=== PATIENT | male | born 1940 | race Caucasian/White ===

== ENCOUNTER 2019-01-31 15:18 | Emergency (ER) | payer MEDICARE, OTHER ==
[2019-01-31 15:26] VITALS: BP 124/69
[2019-01-31] MEDS ORDERED: TETANUS/DIPHTHERIA/PERTUSSIS 0.5 ML SYRINGE IM ONE (15:36)
[2019-01-31] MEDS ORDERED: BUFFERED LIDOCAINE 10 ML SYRINGE SUBQ STA (15:36)
--- NOTE | 2019-01-31 15:38 | ED Physician Documentation ---
History of Present Illness - Stated complaint Stated Complaint: L ARM LAC - Chief complaint Chief Complaint: General - History obtained from History obtained from: Patient - History of Present Illness Timing: Today (78-year-old gentleman with unknown tetanus status was rototilling and tripped and fell down on his left side. He has mild posterior left rib pain and a laceration on the left forearm. No loss of consciousness or head injury.) Review of Systems Constitutional: reports: Reviewed and negative Throat: reports: Reviewed and negative Cardiac: reports: Reviewed and negative Respiratory: reports: Reviewed and negative PD PAST MEDICAL HISTORY - Past Medical History Cardiovascular: None Respiratory: None Neuro: None Endocrine/Autoimmune: None GI: None : None HEENT: None Psych: None Musculoskeletal: None Derm: None Other Past Medical History: denies - Past Surgical History Past Surgical History: No - Allergies Allergies/Adverse Reactions: Allergies Allergy/AdvReac Type Severity Reaction Status Date / Time No Known Drug Allergies Allergy Verified 01/31/19 15:26 - Social History Does the pt smoke?: No Smoking Status: Never smoker Does the pt drink ETOH?: No Does the pt have substance abuse?: No - Immunizations Immunizations are current?: Yes PD ED PE NORMAL - Vitals Vital signs reviewed: Yes - General General: Alert and oriented X 3, No acute distress - Neck Neck: Supple, no meningeal sign, No bony TTP - Respiratory Respiratory: No respiratory distress, Clear bilaterally, Other (No rib tenderness) - Abdomen Abdomen: Non tender - Back Back: No CVA TTP, Other (Mild TTP low T spine and Low posterior L ribs) - Extremities Extremities: Other (On the medial left forearm there is a long shallow but gaping laceration, much of it especially proximally is really more of an abrasion, but distally there are some spots that could use closure.) - Neuro Neuro: Alert and oriented X 3, Normal speech - Psych Psych: Normal mood, Normal affect Results - Vitals Vitals: Vital Signs - 24 hr 01/31/19 15:19 Temperature 37.2 C Heart Rate 98 Respiratory 14 Rate Blood Pressure 124/69 O2 Saturation 99 Oxygen O2 Source Room air - Rads (name of study) T spine XR and Lribs and chest Radiology: EMP read contemporaneously (NAD) Procedures - Laceration (location) Left forearm Length in cm: 6 Wound type: Other (The actual laceration part was may be 6 cm, there was underlying an extensive abrasion proximal to this. The sides of it needed to be sharply debrided and scrubbed and thoroughly irrigated to clean them.) Anesthesia: Lidocaine 1%, With bicarb Wound Preparation: Irrigated copiously NS, Debrided extensively Skin layer closure: Nylon, Interrupted, Size #-0 - enter number (4-0) Other: Patient tolerated well, No complications, Neurovascular intact, Tetanus booster given Complexity: Intermediate Departure - Departure Disposition: 01 Home, Self Care Clinical Impression: Laceration of left forearm Qualifiers: Encounter type: initial encounter Qualified Code(s): S51.812A - Laceration without foreign body of left forearm, initial encounter Condition: Good Record reviewed to determine appropriate education?: Yes Instructions: ED Laceration All Comments: Come back for any signs of infection which would include: Redness, swelling, drainage, increased pain, or fevers. You can wash it soap and water. Keep it covered and moist with bacitracin ointment which is available over the counter; avoid neosporin. Follow-up with your physician in about 10 days for suture removal. If you are interested in volunteering at the hospital, you can call [phone] extension [phone] or see the website at: [email or web address]
--- NOTE | 2019-01-31 17:42 | XRAY Report ---
Reason: fall, rib/back pain Procedure Date: 01/31/2019 Accession Number: [id number] / [id number] Procedure: XR - Thoracic Spine 2 View CPT Code: FULL RESULT: EXAM: THORACIC SPINE RADIOGRAPHY EXAM DATE: 01/31/2019 05:13 PM. CLINICAL HISTORY: Fall, rib/back pain. COMPARISON: None. TECHNIQUE: 3 views. FINDINGS: Alignment: 8 degree dextroscoliosis centered at T8. Bones: Old slight wedging inferior half thoracic spine. Trabecular and cortical patterns are intact. Disks: Multilevel moderate to marked degenerative changes throughout the thoracolumbar spine. Soft Tissues: Pacer. IMPRESSION: No acute bony abnormality. RADIA
--- NOTE | 2019-01-31 17:44 | XRAY Report ---
Reason: fall, rib/back pain Procedure Date: 01/31/2019 Accession Number: [id number] / [id number] Procedure: XR - Ribs w/PA Chest LT CPT Code: FULL RESULT: EXAM: LEFT RIB RADIOGRAPHY EXAM DATE: 01/31/2019 05:13 PM. CLINICAL HISTORY: Fall, rib/back pain. COMPARISON: None. TECHNIQUE: 1 view of the chest and 2 views of the ribs. FINDINGS: Bones: Old right eighth rib fracture. Trabecular and cortical patterns are intact. Lungs: No focal opacities. No pneumothorax. No pleural effusions. Mediastinum: Heart and mediastinal contours are unremarkable. Dual lead left subclavian pacer. Other: Bilateral shoulder loose bodies. IMPRESSION: 1. Pacer. 2. No acute bony abnormality. RADIA
[2019-01-31] MEDS ORDERED: NAPROXEN 250 MG TABLET PO STA (17:46)
[2019-01-31] MEDS ORDERED: BACITRACIN OINT TOP STA (17:49)
== END 2019-01-31 17:57 | disposition home or self-care (01) ==
LOC: ED 15:18
DX: S51.812A Laceration without foreign body of left forearm, initial encounter (principal); W01.198A Fall on same level from slipping, tripping and stumbling with subsequent striking against other object, initial encounter; Y93.H2 Activity, gardening and landscaping
CPT/HCPCS: 12032; 71101; 72070; 90471; 90715; 99282; A9270

== ENCOUNTER 2019-02-09 11:44 | Emergency (ER) | payer MEDICARE, OTHER ==
--- NOTE | 2019-02-09 12:15 | ED Physician Documentation ---
History of Present Illness - Stated complaint Stated Complaint: LEFT SIDE INJURY - Chief complaint Chief Complaint: General - History obtained from History obtained from: Patient - Additonal information Additional information: The patient is an 78-year-old male who presents with ecchymosis of his left flank region extending down his left thigh. 9 days ago he fell while rototilling, impacting a timber and concrete pad with his left back. He was seen here at that time and underwent x-rays of his thoracic spine and chest with rib detail. No bony abnormalities were identified. Lacerations on his left forearm were repaired. The pain in his left flank region has improved since initial onset after the injury. However this morning he noticed a large area of ecchymosis involving that area. He denies lightheadedness, fever, or increasing pain. He is concerned about the possibility of splenic injury. Review of Systems Constitutional: denies: Fever Ears: denies: Tinnitus/ringing Nose: denies: Congestion Throat: denies: Sore throat Cardiac: denies: Chest pain / pressure Respiratory: denies: Dyspnea, Cough GI: denies: Abdominal Pain, Nausea, Vomiting : denies: Dysuria Skin: reports: Laceration (s) (Laceration of the left forearm healing.) Musculoskeletal: denies: Neck pain, Back pain Neurologic: denies: Focal weakness, Numbness, Headache PD PAST MEDICAL HISTORY - Past Medical History Cardiovascular: None Respiratory: None Neuro: None Endocrine/Autoimmune: None GI: None : None HEENT: None Psych: None Musculoskeletal: None Derm: None - Past Surgical History Past Surgical History: No - Allergies Allergies/Adverse Reactions: Allergies Allergy/AdvReac Type Severity Reaction Status Date / Time No Known Drug Allergies Allergy Verified 01/31/19 15:26 - Social History Does the pt smoke?: No Smoking Status: Never smoker Does the pt drink ETOH?: No Does the pt have substance abuse?: No - Immunizations Immunizations are current?: Yes PD ED PE NORMAL - Vitals Vital signs reviewed: Yes (Mild diastolic hypertension.) - General General: Alert and oriented X 3, Well developed/nourished - HEENT HEENT: Atraumatic, Pharynx benign - Neck Neck: No bony TTP, No JVD - Cardiac Cardiac: RRR - Respiratory Respiratory: No respiratory distress, Clear bilaterally - Abdomen Abdomen: Soft, Non tender, Other (Rotund abdomen.) - Back Back: No CVA TTP, No spinal TTP - Derm Derm: No rash, Other (There is a large area of ecchymosis from the left flank region extending down across the pelvis into the left upper thigh. There is no associated break in the integument, and no focal tenderness to palpation. The laceration on the extensor aspect of the left forearm is intact with sutures and appears to be healing well, with no evidence of cellulitis. There is also a nonsutured deep abrasion on the left upper arm, which he appears to be healing well.) - Extremities Extremities: No calf tenderness / cord - Neuro Neuro: Alert and oriented X 3, No motor deficit, No sensory deficit Results - Vitals Vitals: Vital Signs - 24 hr 02/09/19 02/09/19 02/09/19 12:00 13:59 15:28 Temperature 36.8 C 36.5 C 36.1 C L Heart Rate 66 60 61 Respiratory 16 12 18 Rate Blood Pressure 122/95 H 132/73 H 154/87 H O2 Saturation 96 99 99 Oxygen O2 Source Room air - EKG (time done) 11:37 Rate: Rate (enter#) (55) Rhythm: NSR, LAE [place]: Normal QRS: Poor R wave progression Ischemia: Q waves (in precordial leads V1, V2, consistent with old anterior OK.) Computer interpretation: Agree with computer - Labs Labs: Laboratory Tests 02/09/19 02/09/19 12:39 12:39 WBC 5.3 RBC 4.71 Hgb 15.0 Hct 44.5 MCV 94.4 H MCH 31.9 H MCHC 33.8 RDW 12.9 Plt Count 273 MPV 8.1 Neut # (Auto) 3.1 Lymph # (Auto) 1.3 L [place] # (Auto) 0.6 Eos # (Auto) 0.1 Baso # (Auto) 0.1 Absolute Nucleated RBC 0.00 Nucleated RBC % 0.1 Sodium 139 Potassium 4.3 Chloride 103 Carbon Dioxide 29 Anion Gap 7.0 BUN 26 H Creatinine 1.0 Estimated GFR (MDRD) 72 L Glucose 105 H Calcium 9.2 Total Bilirubin 1.1 H AST 26 ALT 21 Alkaline Phosphatase 59 Total Protein 6.4 L Albumin 3.7 Globulin 2.7 Albumin/Globulin Ratio 1.4 Lipase 28 - Rads (name of study) CT abd/pelvis Radiology: Prelim report reviewed, EMP read contemporaneously, See rad report (1) Nondisplaced left lateral eighth through 11th rib fractures. 2) No solid or hollow abdominal viscera trauma. 3) Mild left flank subcutaneous hemorrhagic stranding. No drainable fluid collection seen. 4) Small fat-containing bilateral inguinal hernias. 5) Diverticulosis. 6) Incidental 3 and 4 mm right middle lobe not jewels, incompletely imaged on this exam. Consider full evaluation with chest CT on elective basis.) Procedures - Suture/staple Removal (location) Upper extremity left Suture/staple removal: # sutures (7), No complications PD MEDICAL DECISION MAKING - ED course Complexity details: reviewed old records, reviewed results, re-evaluated patient, considered differential, d/w patient ED course: The patient's presentation is significant for fractures of left ribs 8 through 11, seen on CT scan of the abdomen and pelvis. This is from an injury sustained 9 days ago when he fell backwards onto a timber whle rototilling. The CT scan did not reveal any evidence of intraperitoneal injury. CBC reveals a normal hemoglobin and hematocrit. In addition the patient presented for removal of sutures from a wound on his left forearm that been repaired when seen here 9 days ago. The wound appears to be healing well with no evidence of infection. The sutures were removed without difficulty. I discussed with the patient the results of his CT scan, expected course of injury, symptomatic treatment and outpatient follow-up, as well as potentially worrisome signs or symptoms that should prompt reevaluation in the emergency department. Departure - Departure Disposition: 01 Home, Self Care Clinical Impression: Ecchymosis, Visit for suture removal Multiple fractures of ribs of left side Qualifiers: Encounter type: subsequent encounter Fracture type: closed Fracture healing: with routine healing Qualified Code(s): S22.42XD - Multiple fractures of ribs, left side, subsequent encounter for fracture with routine healing Condition: Stable Instructions: ED Fx Rib Follow-Up: Glenn Frazier MD [Primary Care Provider] - Comments: Use Tylenol or ibuprofen if needed for discomfort. Let pain be your guide to activity level. Follow-up with your primary physician within 2 weeks. Call to schedule an appointment. Return to the emergency department if increasing pain or difficulty breathing, any sign of infection, or otherwise worsening symptoms. Discharge Date/Time: 02/09/19 15:39
[2019-02-09] MEDS ORDERED: IOVERSOL 320 100 ML VIAL IVP ONE ×2 (12:29→17:52)
[2019-02-09 12:44] LABS: BASOPHILS # (AUTO) 0.1 10^3/uL (0.0-0.1); EOSINOPHILS # (AUTO) 0.1 10^3/uL (0.0-0.7); EOSINOPHILS % (AUTO) 2.8 %; LYMPHOCYTES # (AUTO) 1.3 10^3/uL (1.5-3.5); LYMPHOCYTES % (AUTO) 25.3 %; MEAN CORPUSCULAR HEMOGLOBIN 31.9 pg (27.0-31.0); MEAN CORPUSCULAR HGB CONC 33.8 g/dL (32.0-36.0); MEAN CORPUSCULAR VOLUME 94.4 fL (80.0-94.0); MEAN PLATELET VOLUME 8.1 fL (7.4-11.4); MONOCYTES # (AUTO) 0.6 10^3/uL (0.0-1.0); MONOCYTES % (AUTO) 11.6 %; NEUTROPHILS # (AUTO) 3.1 10^3/uL (1.5-6.6); NEUTROPHILS % (AUTO) 59.3 %; PLT - PLATELET COUNT 273 10^3/uL (130-450); RED BLOOD COUNT 4.71 10^6/uL (4.70-6.10); RED CELL DISTRIBUTION WIDTH 12.9 % (12.0-15.0); WHITE BLOOD COUNT 5.3 x10^3/uL (4.8-10.8)
[2019-02-09 12:59] LABS: ALBUMIN 3.7 g/dL (3.2-5.5); ALBUMIN/GLOBULIN RATIO 1.4 (1.0-2.2); BILIRUBIN,TOTAL 1.1 mg/dL (0.2-1.0); CALCIUM 9.2 mg/dL (8.5-10.3); TOTAL PROTEIN 6.4 g/dL (6.7-8.2)
--- NOTE | 2019-02-09 14:51 | CT Report ---
Reason: Large area of ecchymosis left abd/pelvis Procedure Date: 02/09/2019 Accession Number: [id number] / [id number] Procedure: CT - Abdomen/Pelvis W CPT Code: FULL RESULT: EXAM: CT ABDOMEN AND PELVIS EXAM DATE: 02/09/2019 01:41 PM. CLINICAL HISTORY: Large area of ecchymosis left abdomen/pelvis. COMPARISONS: None. TECHNIQUE: Routine helical CT imaging was performed through the abdomen and pelvis. IV contrast: 100 mL Optiray 320. Enteric contrast: No. Reconstructions: Coronal and sagittal. In accordance with CT protocol optimization, one or more of the following dose reduction techniques were utilized for this exam: automated exposure control, adjustment of mA and/or KV based on patient size, or use of iterative reconstructive technique. FINDINGS: Lung Bases: There are 3 and 4 mm right middle lobe nodules. No pleural effusions. Liver: Subcentimeter hypodensities in the left and right hepatic lobes, which are too small to characterize; however, statistically most likely represent cysts or hemangiomas. Liver is otherwise unremarkable. Gallbladder/Bile Ducts: Unremarkable. Spleen: Normal. Pancreas: Normal. Adrenal Glands: Normal. Kidneys: Normal. No masses or hydronephrosis. Peritoneal Cavity/Bowel: There is diverticulosis without diverticulitis. No bowel obstruction. No free air or fluid collections. The appendix is well visualized and normal. Pelvic Organs: There is metallic artifact from bilateral hip replacements obscuring the urinary bladder and prostate gland. No obvious fluid collections or masses seen. There are small fat-containing bilateral inguinal hernias. Vasculature: No aneurysms or other significant abnormality. Bones: Bilateral hip replacements demonstrate satisfactory alignment. There are nondisplaced fractures involving the left lateral eighth, ninth, 10th and 11th ribs. Diffuse lumbar spine degenerative disk disease. No lower thoracic or lumbar spine fracture seen. Other: Mild subcutaneous hemorrhagic stranding in the left flank. No drainable fluid collection seen. IMPRESSION: 1. Nondisplaced left lateral 8th through 11th rib fractures. 2. No solid or hollow abdominal visceral trauma. 3. Mild left flank subcutaneous hemorrhagic stranding. No drainable fluid collection seen. 4. Small fat-containing bilateral inguinal hernias. 5. Diverticulosis. 6. Incidental 3 and 4 mm right middle lobe nodules, incompletely imaged on this exam. Consider full evaluation with chest CT on an elective basis. RADIA
[2019-02-09 15:29] VITALS: BP 154/87
== END 2019-02-09 15:39 | disposition home or self-care (01) ==
LOC: ED 11:44
DX: S22.42XA Multiple fractures of ribs, left side, initial encounter for closed fracture (principal); W18.39XA Other fall on same level, initial encounter; Y93.H2 Activity, gardening and landscaping; S51.812D Laceration without foreign body of left forearm, subsequent encounter
CPT/HCPCS: 36415; 74177; 80053; 83690; 85025; 99283; Q9967

== ENCOUNTER 2020-04-11 16:25 | Outpatient (CLI) | payer MEDICARE, OTHER ==
[2020-04-11 19:07] LABS: BASOPHILS % (AUTO) 0.6 %; EOSINOPHILS # (AUTO) 0.2 10^3/uL (0.0-0.7); EOSINOPHILS % (AUTO) 2.6 %; HGB - HEMOGLOBIN 16.2 g/dL (14.0-18.0); LYMPHOCYTES # (AUTO) 1.5 10^3/uL (1.5-3.5); LYMPHOCYTES % (AUTO) 23.5 %; MEAN CORPUSCULAR HEMOGLOBIN 31.6 pg (27.0-31.0); MEAN CORPUSCULAR HGB CONC 33.1 g/dL (32.0-36.0); MEAN CORPUSCULAR VOLUME 95.5 fL (80.0-94.0); MEAN PLATELET VOLUME 10.7 fL (7.4-11.4); MONOCYTES # (AUTO) 0.7 10^3/uL (0.0-1.0); MONOCYTES % (AUTO) 11.9 %; NEUTROPHILS # (AUTO) 3.8 10^3/uL (1.5-6.6); NEUTROPHILS % (AUTO) 60.8 %; PLT - PLATELET COUNT 222 10^3/uL (130-450); RED BLOOD COUNT 5.13 10^6/uL (4.70-6.10); RED CELL DISTRIBUTION WIDTH 12.5 % (12.0-15.0); WHITE BLOOD COUNT 6.2 x10^3/uL (4.8-10.8)
[2020-04-11 19:33] LABS: ALBUMIN 4.6 g/dL (3.2-5.5); ALBUMIN/GLOBULIN RATIO 1.9 (1.0-2.2); BILIRUBIN,TOTAL 0.9 mg/dL (0.2-1.0); CALCIUM 9.3 mg/dL (8.5-10.3); CREATININE 1.4 mg/dL (0.6-1.2)
[2020-04-11 19:42] LABS: THYROID STIMULATING HORMONE 0.45 uIU/mL (0.34-5.60)
[2020-04-11 19:43] LABS: FREE T3 2.63 pg/mL (2.5-3.9)
[2020-04-11 19:44] LABS: FREE T4 (FREE THYROXINE) 1.3 ng/dL (0.58-1.64)
== END 2020-04-11 23:59 | disposition home or self-care (01) ==
LOC: LAB.WCP 16:25
PROVIDERS: ATTEND Family Medicine
DX: E03.9 Hypothyroidism, unspecified (principal); M79.7 Fibromyalgia
CPT/HCPCS: 36415; 80053; 84439; 84443; 84481; 85025

== ENCOUNTER 2020-07-11 20:21 | Outpatient (CLI) | payer MEDICARE, OTHER | END 2020-07-11 20:22 | disposition home or self-care (01) | LOC: COV 20:21 | PROVIDERS: ATTEND Family Medicine | DX: Z20.828 Contact with and (suspected) exposure to other viral communicable diseases (principal) ==

== ENCOUNTER 2020-08-16 15:00 | Outpatient (CLI) | payer MEDICARE, OTHER ==
[2020-08-16 19:10] LABS: THYROID STIMULATING HORMONE 3.16 uIU/mL (0.34-5.60)
[2020-08-16 19:12] LABS: FREE T3 2.87 pg/mL (2.5-3.9); FREE T4 (FREE THYROXINE) 0.84 ng/dL (0.58-1.64)
== END 2020-08-16 23:59 | disposition home or self-care (01) ==
LOC: LAB.WCP 15:00
PROVIDERS: ATTEND Family Medicine
DX: E03.9 Hypothyroidism, unspecified (principal)
CPT/HCPCS: 36415; 84439; 84443; 84481

== ENCOUNTER 2020-12-03 07:00 | Outpatient (CLI) | payer MEDICARE, OTHER ==
[2020-12-03 18:00] LABS: BILIRUBIN,URINE NEGATIVE (NEGATIVE); GLUCOSE, URINE (UA) NEGATIVE (NEGATIVE); KETONES,URINE (UA) NEGATIVE (NEGATIVE); LEUKOCYTE ESTERASE, URINE NEGATIVE (NEGATIVE); NITRITE,URINE NEGATIVE (NEGATIVE); OCCULT BLOOD,URINE NEGATIVE (NEGATIVE); PROTEIN,URINE NEGATIVE (NEGATIVE); UROBILINOGEN,URINE 0.2 (NORMAL) E.U./dL (NORMAL)
[2020-12-03 18:10] LABS: BACTERIA,URINE None Seen /HPF (None Seen); CLARITY,URINE CLEAR (CLEAR); MUCUS,URINE Few Strands; RBC,URINE 0-5 /HPF (0-5); SQUAMOUS EPITHELIAL CELL,UR RARE Squamous (<= Few); WBC,URINE 0-3 /HPF (0-3)
== END 2020-12-03 23:59 | disposition home or self-care (01) ==
LOC: LAB.WCP 07:00
PROVIDERS: ATTEND Family Medicine
DX: N40.0 Benign prostatic hyperplasia without lower urinary tract symptoms (principal)
CPT/HCPCS: 36415; 81001; 84153; 87086

== ENCOUNTER 2021-04-29 19:27 | Outpatient (CLI) | payer MEDICARE, OTHER ==
--- NOTE | 2021-04-30 08:20 | Ultrasound Report ---
PROCEDURE: Duplex Ext Veins Bilateral INDICATIONS: Leg swelling, concern for DVT TECHNIQUE: Real-time imaging, as well as color and pulse Doppler interrogation, were performed of the deep veins of both legs from the inguinal ligament to the popliteal fossa. COMPARISON: None. FINDINGS: The deep veins are normally compressible, and free of intraluminal thrombus. Color and pu lse Doppler demonstrate normal phasic intravascular flow. There is normal augmentation response to d istal compression maneuver. IMPRESSION: No sonographic evidence of DVT in the bilateral lower extremities. Reviewed by: Santos Gutiérrez MD on 04/30/2021 8:19 AM PDT Approved by: Santos Gutiérrez MD on 04/30/2021 8:19 AM PDT Station ID: [id number]
== END 2021-04-29 19:28 | disposition home or self-care (01) ==
LOC: DI 19:27
PROVIDERS: ATTEND Family Medicine
DX: R60.9 Edema, unspecified (principal)
CPT/HCPCS: 93970

== ENCOUNTER 2021-05-05 08:00 | Outpatient (CLI) | payer MEDICARE, OTHER ==
[2021-05-05 17:48] LABS: HCT - HEMATOCRIT 47.4 % (42.0-52.0); HGB - HEMOGLOBIN 15.6 g/dL (14.0-18.0); MEAN CORPUSCULAR HEMOGLOBIN 31.7 pg (27.0-31.0); MEAN CORPUSCULAR HGB CONC 32.9 g/dL (32.0-36.0); MEAN CORPUSCULAR VOLUME 96.3 fL (80.0-94.0); MEAN PLATELET VOLUME 10.8 fL (7.4-11.4); RED BLOOD COUNT 4.92 10^6/uL (4.70-6.10); RED CELL DISTRIBUTION WIDTH 13.4 % (12.0-15.0); WHITE BLOOD COUNT 5.6 x10^3/uL (4.8-10.8)
[2021-05-05 18:22] LABS: CALCIUM 9.3 mg/dL (8.5-10.3); CREATININE 1.2 mg/dL (0.6-1.2); POTASSIUM 4.4 mmol/L (3.5-5.0)
== END 2021-05-05 23:59 | disposition home or self-care (01) ==
LOC: LAB.WCP 08:00
PROVIDERS: ATTEND Family Medicine
DX: N18.32 Chronic kidney disease, stage 3b (principal); R63.5 Abnormal weight gain; R60.9 Edema, unspecified; G47.33 Obstructive sleep apnea (adult) (pediatric)
CPT/HCPCS: 36415; 80048; 83880; 85027

== ENCOUNTER 2021-05-05 13:24 | Outpatient (CLI) | payer MEDICARE, OTHER ==
--- NOTE | 2021-05-05 14:08 | XRAY Report ---
PROCEDURE: Chest 2 View X-Ray INDICATIONS: CHRONIC KIDNEY Disease, wt Gain, peripheral EDEMA TECHNIQUE: 2 view(s) of the chest. COMPARISON: CXR 01/31/2019. FINDINGS: Surgical changes and devices: Left pacemaker with right atrial and right ventricular leads. Lungs and pleura: No pleural effusions or pneumothorax. Minimal streaky opacity at the medial aspect of the right lower lobe. Mediastinum: Mediastinal contours are normal. Heart size is normal. Bones and chest wall: No suspicious bony abnormalities. Soft tissues appear unremarkable. IMPRESSION: Minimal streaky opacity at the right lung base. This could be due to atelectasis, scarring, or pulmon nazanin vasculature engorgement. Reviewed by: Robin Phillips MD on 05/05/2021 2:06 PM PDT Approved by: Robin Phillips MD on 05/05/2021 2:06 PM PDT Station ID: [id number]
== END 2021-05-05 13:25 | disposition home or self-care (01) ==
LOC: DI 13:24
PROVIDERS: ATTEND Family Medicine
DX: R91.8 Other nonspecific abnormal finding of lung field (principal); N18.32 Chronic kidney disease, stage 3b; R63.5 Abnormal weight gain; R60.9 Edema, unspecified; G47.33 Obstructive sleep apnea (adult) (pediatric)

== ENCOUNTER 2021-07-08 08:00 | Outpatient (CLI) | payer MEDICARE, OTHER ==
[2021-07-08 17:51] LABS: BASOPHILS % (AUTO) 0.5 %; EOSINOPHILS # (AUTO) 0.1 10^3/uL (0.0-0.7); EOSINOPHILS % (AUTO) 1.5 %; HCT - HEMATOCRIT 48.6 % (42.0-52.0); HGB - HEMOGLOBIN 16.5 g/dL (14.0-18.0); LYMPHOCYTES # (AUTO) 1.7 10^3/uL (1.5-3.5); LYMPHOCYTES % (AUTO) 25.5 %; MEAN CORPUSCULAR HEMOGLOBIN 32.2 pg (27.0-31.0); MEAN CORPUSCULAR VOLUME 94.9 fL (80.0-94.0); MEAN PLATELET VOLUME 10.6 fL (7.4-11.4); MONOCYTES # (AUTO) 0.7 10^3/uL (0.0-1.0); MONOCYTES % (AUTO) 10.4 %; NEUTROPHILS % (AUTO) 61.3 %; PLT - PLATELET COUNT 226 10^3/uL (130-450); RED BLOOD COUNT 5.12 10^6/uL (4.70-6.10); WHITE BLOOD COUNT 6.5 x10^3/uL (4.8-10.8)
[2021-07-08 18:05] LABS: ALBUMIN 4.3 g/dL (3.2-5.5); ALBUMIN/GLOBULIN RATIO 1.7 (1.0-2.2); ALKALINE PHOSPHATASE 58 IU/L (42-121); ALT ALANINE AMINOTRANSFERASE 31 IU/L (10-60); AST ASPARTATE AMINOTRANSFERASE 29 IU/L (10-42); BUN - BLOOD UREA NITROGEN 30 mg/dL (6-20); CALCIUM 9.2 mg/dL (8.5-10.3); CARBON DIOXIDE - CO2 26 mmol/L (21-32); CHLORIDE 104 mmol/L (101-111); CHOL/HDL RATIO 3.5 (<5.0); CHOLESTEROL 166 mg/dL; CREATININE 1.3 mg/dL (0.6-1.2); GFR - MDRD 53 (>89); GLUCOSE 98 mg/dL (70-100); HDL CHOLESTEROL 48 mg/dL; LDL CHOLESTEROL,CALCULATED 89 mg/dL; LDL/HDL RATIO 1.9 (<3.6); POTASSIUM 4.3 mmol/L (3.5-5.0); SODIUM 140 mmol/L (135-145); TOTAL PROTEIN 6.9 g/dL (6.7-8.2); TRIGLYCERIDES 147 mg/dL; VLDL CHOLESTEROL 29 mg/dL
[2021-07-08 18:16] LABS: THYROID STIMULATING HORMONE 2.1 uIU/mL (0.34-5.60)
[2021-07-08 18:18] LABS: FREE T3 2.42 pg/mL (2.5-3.9); FREE T4 (FREE THYROXINE) 0.86 ng/dL (0.58-1.64)
== END 2021-07-08 23:59 | disposition home or self-care (01) ==
LOC: LAB.WCP 08:00
PROVIDERS: ATTEND Family Medicine
DX: N18.32 Chronic kidney disease, stage 3b (principal); R60.0 Localized edema; R60.9 Edema, unspecified; G47.33 Obstructive sleep apnea (adult) (pediatric); E78.5 Hyperlipidemia, unspecified; N40.0 Benign prostatic hyperplasia without lower urinary tract symptoms; I44.2 Atrioventricular block, complete; E03.9 Hypothyroidism, unspecified; M79.7 Fibromyalgia
CPT/HCPCS: 36415; 80053; 80061; 83721; 84153; 84439; 84443; 84481; 85025

== ENCOUNTER 2021-11-06 09:20 | Outpatient (CLI) | payer MEDICARE, OTHER ==
--- NOTE | 2021-11-06 09:43 | CARDIAC PROCEDURE NOTE ---
Stress Test Report Service Date: 11/06/21 Service Time: 09:30 Ordering Provider: Justice Barraza MD Indication for Test: Assess for inducible ischemia as a contributor to exertional dyspnea. 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 He was found to have complete heart block and underwent dual-chamber pacemaker placement, with significant improvement in his functional level. The generator reached end of life and was replaced in 2018, also in [place]. He relocated to [facility] about 3 years ago and has been followed for his pacemaker periodically by Dr. Rl Worthington. He also has mixed obstructive/central sleep apnea for which he has been on auto BiPAP for several years. He has not found a new sleep provider since relocating 3 years ago, but feels that this treatment is stable and was documented as being optimized prior to his relocation. -He is referred for a treadmill stress echocardiogram today in the setting of symptoms that include mild leg swelling and shortness of breath with gradual in onset over the past 1-2 years with some acceleration in severity over the past 6 months. The symptoms have forced him to discontinue using his rowing machine at home and now limits his 2/10 mile walk up to his mailbox. He denies associated chest pressure, discomfort or pain, as well as positional dyspnea or weight gain. He was trialed on furosemide, which he says has reduced his edema somewhat and resulted in frequent urination, though not had a notable effect on his exertional dyspnea. More recently he was also trialed on albuterol, but this also has not been helpful. Cardiac Risk Factors: Neftali reports some heart disease in 2 paternal uncles but is unaware of other affected close family members. He denies history of hypertension (rather has chronically low BPs), hyperlipidemia, diabetes or tobacco smoking ever. Type of Stress Test: ETT with Echocardiography Procedure: -Exercise Treadmill Test- After signing informed consent, the patient underwent resting echo imaging and then performed treadmill exercise using a Modified Aj protocol. The patient exercised for 9 minutes 32 seconds and achieved a peak heart rate of 128 (93 percent predicted maximum heart rate for age), and an estimated workload of 5.5 METS. The test was terminated due to fatigue/shortness of breath. Resting heart rate: 67 Peak heart rate: 128 Normal response to exercise. Resting BP: 124/95 Peak BP: 176/93 Borderline resting BP with physiologic response to exercise. Rhythm during exercise: Sinus rhythm with continuous ventricular pacing, with isolated PVC's, with rare PVC couplets and a single PVC triplet (near peak exercise). Symptoms: Dyspnea first noted 2 minutes into stage 1, but did not become limiting until late stage 3/early stage 4; no description of any chest discomfort. EKG at rest showed primarily A-V paced rhythm with occasional sinus beats. EKG at peak stress was uninterpretable due to continuous ventricular pacing. In Recovery heart rate rapidly/normally returned to baseline with slower decline in BP (150/77 at 6 minutes). Echo imaging performed at rest and with stress will be reported separately. Milton Muñoz MD, was present throughout this treadmill/pharmacologic stress study and supervised it in its entirety. Summary: 1) Although dyspnea was evident in stage 1, patient was able to continue to stage 4 with coaching and assistance with balance/stability; overall, exercise tolerance was well above average as evidenced by JAYSHREE of -51%. 2) Abnormal resting EKG. 3) Adequate level of exercise was achieved on this treadmill stress test. 4) Borderline resting BP with physiologic increase with exercise. 5) Due to continuous ventricular pacing, specific analysis of ST segment response not possible. 6) Echo image interpretation reveals normal left ventricular size and systolic function, with appropriate hyperdynamic augmentation of all segments with exercise, indicating no evidence of prior infarct or inducible ischemia. See separate report for more details. CONCLUSIONS: 1) No evidence of high clinical risk, based on exercise time, vital signs and echo responses. 2) Patient described some positional lightheadedness and balance issues, for which furosemide and pregabalin could be implicated and may warrant a trial of discontinuation of these agents individually.
== END 2021-11-06 09:21 | disposition home or self-care (01) ==
LOC: DI 09:20
PROVIDERS: ATTEND Family Medicine
DX: R06.09 Other forms of dyspnea (principal); J45.909 Unspecified asthma, uncomplicated; Z82.49 Family history of ischemic heart disease and other diseases of the circulatory system
CPT/HCPCS: 93016; 93017; 93018; 93350

== ENCOUNTER 2022-12-28 09:44 | Outpatient (CLI) | payer MEDICARE, OTHER ==
[2022-12-28 09:59] LABS: BASOPHILS % (AUTO) 0.6 %; EOSINOPHILS # (AUTO) 0.1 10^3/uL (0.0-0.7); EOSINOPHILS % (AUTO) 1.5 %; HCT - HEMATOCRIT 50.5 % (42.0-52.0); HGB - HEMOGLOBIN 17.1 g/dL (14.0-18.0); LYMPHOCYTES # (AUTO) 1.7 10^3/uL (1.5-3.5); LYMPHOCYTES % (AUTO) 26.2 %; MEAN CORPUSCULAR HEMOGLOBIN 32.1 pg (27.0-31.0); MEAN CORPUSCULAR HGB CONC 33.9 g/dL (32.0-36.0); MEAN CORPUSCULAR VOLUME 94.7 fL (80.0-94.0); MEAN PLATELET VOLUME 10.1 fL (7.4-11.4); MONOCYTES # (AUTO) 0.8 10^3/uL (0.0-1.0); NEUTROPHILS # (AUTO) 3.8 10^3/uL (1.5-6.6); NEUTROPHILS % (AUTO) 58.8 %; PLT - PLATELET COUNT 240 10^3/uL (130-450); RED BLOOD COUNT 5.33 10^6/uL (4.70-6.10); RED CELL DISTRIBUTION WIDTH 12.6 % (12.0-15.0); WHITE BLOOD COUNT 6.5 x10^3/uL (4.8-10.8)
[2022-12-28 10:34] LABS: ALBUMIN 4.1 g/dL (3.2-5.5); ALBUMIN/GLOBULIN RATIO 1.3 (1.0-2.2); ALKALINE PHOSPHATASE 60 IU/L (42-121); ALT ALANINE AMINOTRANSFERASE 27 IU/L (10-60); AST ASPARTATE AMINOTRANSFERASE 28 IU/L (10-42); BUN - BLOOD UREA NITROGEN 19 mg/dL (6-20); CALCIUM 9.1 mg/dL (8.5-10.3); CARBON DIOXIDE - CO2 28 mmol/L (21-32); CHLORIDE 107 mmol/L (101-111); CHOL/HDL RATIO 3.4 (<5.0); CHOLESTEROL 166 mg/dL; CREATININE 1.2 mg/dL (0.6-1.2); GFR - MDRD 58 (>89); GLUCOSE 116 mg/dL (70-100); HDL CHOLESTEROL 49 mg/dL; LDL CHOLESTEROL,CALCULATED 97 mg/dL; POTASSIUM 3.9 mmol/L (3.5-5.0); SODIUM 139 mmol/L (135-145); TOTAL PROTEIN 7.2 g/dL (6.7-8.2); TRIGLYCERIDES 102 mg/dL; VLDL CHOLESTEROL 20 mg/dL
[2022-12-28 10:43] LABS: THYROID STIMULATING HORMONE 13.41 uIU/mL (0.34-5.60)
[2022-12-28 11:35] LABS: FREE T4 (FREE THYROXINE) 0.93 ng/dL (0.58-1.64)
== END 2022-12-28 09:45 | disposition home or self-care (01) ==
LOC: LAB 09:44
PROVIDERS: ATTEND Family Medicine
DX: N18.32 Chronic kidney disease, stage 3b (principal); Z95.0 Presence of cardiac pacemaker; E03.9 Hypothyroidism, unspecified
CPT/HCPCS: 36415; 80053; 80061; 83721; 84439; 84443; 85025

== ENCOUNTER 2023-02-24 15:56 | Outpatient (CLI) | payer MEDICARE, OTHER ==
--- NOTE | 2023-02-24 17:15 | Sleep Patient Instructions ---
Sleep Center Visit Summary - Patient Visit Information Reason for Visit: Initial consult to establish care for PAP therapy - Patient Instructions Additional Instructions: You were here for follow up of BIPAP therapy. You will be continued on BiPAP therapy. We are going to try to obtain a copy of your sleep study. If not, we will order a sleep study. We will be in touch to coordinate with you. You may contact us sooner for any questions or concerns. - Clinic Information Contact: [facility] [address] [place] [id number] [email or web address] T: [phone]
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
[2023-02-24 17:34] VITALS: BP 130/90
== END 2023-02-24 15:57 ==
LOC: SC 15:56
PROVIDERS: ATTEND Nurse Practitioner Family
DX: G47.33 Obstructive sleep apnea (adult) (pediatric) (principal); E66.9 Obesity, unspecified; Z68.30 Body mass index [BMI] 30.0-30.9, adult
CPT/HCPCS: 99204; G0463; 99212

== ENCOUNTER 2023-11-18 10:24 | Outpatient (CLI) | payer MEDICARE, OTHER ==
[2023-11-18 11:03] LABS: CREATININE 1.3 mg/dL (0.6-1.3); POTASSIUM 4.3 mmol/L (3.5-4.5)
[2023-11-18 11:08] LABS: ESTIMATED AVERAGE GLUCOSE 108 mg/dL (70-100); HEMOGLOBIN A1c% 5.4 % (4.27-6.07)
[2023-11-18 11:10] LABS: THYROID STIMULATING HORMONE 6.51 uIU/mL (0.34-5.60)
--- NOTE | 2023-11-18 20:09 | XRAY Report ---
PROCEDURE: Lumbar Spine 4V INDICATIONS: LOW BACK PAIN TECHNIQUE: 3 view(s) of the lumbar spine were acquired. COMPARISON: None. FINDINGS: Bones: . No suspicious bony lesions. Convex left thoracolumbar scoliosis with joint space narrowing and hypertrophic facet joints througho ut the exam particularly lower lumbar spine. A T12 wedge-shaped compression fracture with 20% anterio r height loss Partially imaged bilateral hip prosthesis. Soft tissues: Overlying bowel gas pattern is normal. No suspicious soft tissue calcifications. IMPRESSION: T12 compression fracture, uncertain age. Advanced multilevel degenerative disc disease and arthropathy. Thoracolumbar levoscoliosis Reviewed by: Hi Cartwright MD on 11/18/2023 7:07 PM [place] Approved by: Hi Cartwright MD on 11/18/2023 7:07 PM [facility] Station ID: [id number]
== END 2023-11-18 10:25 | disposition home or self-care (01) ==
LOC: LAB 10:24
PROVIDERS: ATTEND Family Medicine
DX: E03.9 Hypothyroidism, unspecified (principal); R73.9 Hyperglycemia, unspecified; I44.2 Atrioventricular block, complete; E29.1 Testicular hypofunction; G89.29 Other chronic pain; M48.54XA Collapsed vertebra, not elsewhere classified, thoracic region, initial encounter for fracture; M51.36 Other intervertebral disc degeneration, lumbar region; M47.816 Spondylosis without myelopathy or radiculopathy, lumbar region; M41.9 Scoliosis, unspecified
CPT/HCPCS: 36415; 80048; 83036; 84403; 84439; 84443

== ENCOUNTER 2024-03-20 08:00 | Outpatient (CLI) | payer MEDICARE, OTHER | END 2024-03-20 23:59 | disposition home or self-care (01) | LOC: LAB.N 08:00 | PROVIDERS: ATTEND Nurse Practitioner | DX: R41.82 Altered mental status, unspecified (principal) | CPT/HCPCS: 87086 ==

== ENCOUNTER 2024-03-20 15:37 | Outpatient (CLI) | payer MEDICARE, OTHER ==
[2024-03-20 15:52] LABS: BASOPHILS % (AUTO) 0.5 %; EOSINOPHILS # (AUTO) 0.1 10^3/uL (0.0-0.7); EOSINOPHILS % (AUTO) 1.1 %; HCT - HEMATOCRIT 53.6 % (42.0-52.0); LYMPHOCYTES % (AUTO) 26.3 %; MEAN CORPUSCULAR HEMOGLOBIN 31.9 pg (27.0-31.0); MEAN CORPUSCULAR HGB CONC 33.6 g/dL (32.0-36.0); MEAN PLATELET VOLUME 9.9 fL (7.4-11.4); MONOCYTES % (AUTO) 12.8 %; NEUTROPHILS # (AUTO) 4.4 10^3/uL (1.5-6.6); NEUTROPHILS % (AUTO) 58.8 %; PLT - PLATELET COUNT 283 10^3/uL (130-450); RED BLOOD COUNT 5.64 10^6/uL (4.70-6.10); WHITE BLOOD COUNT 7.5 x10^3/uL (4.8-10.8)
[2024-03-20 16:05] LABS: ALBUMIN 4.5 g/dL (3.2-5.5); ALBUMIN/GLOBULIN RATIO 1.6 (1.0-2.2); CREATININE 1.4 mg/dL (0.6-1.3); POTASSIUM 4.4 mmol/L (3.5-4.5); TOTAL PROTEIN 7.3 g/dL (6.4-8.9)
== END 2024-03-20 15:38 | disposition home or self-care (01) ==
LOC: LAB 15:37
PROVIDERS: ATTEND Nurse Practitioner
DX: R41.82 Altered mental status, unspecified (principal)
CPT/HCPCS: 36415; 80053; 85025; 87086

== ENCOUNTER 2024-03-24 08:00 | Outpatient (CLI) | payer MEDICARE, OTHER | END 2024-03-24 23:59 | disposition home or self-care (01) | LOC: LAB 08:00 | PROVIDERS: ATTEND Physician Assistant | DX: R35.0 Frequency of micturition (principal) | CPT/HCPCS: 87086 ==

== ENCOUNTER 2024-04-13 13:25 | Outpatient (CLI) | payer MEDICARE, OTHER ==
--- NOTE | 2024-04-13 14:04 | Sleep Patient Instructions ---
Sleep Center Visit Summary - Patient Visit Information Reason for Visit: Annual follow-up - Patient Instructions Additional Instructions: You will continue with BiPAP ASV therapy with pressure set at IPAP 14, EPAP 11- 12 cmH2O with 30 cmH2O maximum and 3-6 cmH2O pressure support. A supply prescription will be updated and sent to your new DME. I have added an order to update your PAP machine. Please call the office to schedule a compliance follow up once you get your new device. Please follow up with the sleep care office one month after obtaining new device. - Clinic Information Contact: [facility] [address] [place] [address] [email or web address] T: [phone]
--- NOTE | 2024-04-13 14:08 | SLEEP CARE CONSULTATION ---
Information from patient questionnaire entered by Millie Spann. I have reviewed and concur with the information entered by Millie Spann. This document represents the service I personally performed and the decisions made by me, Cherie Jonas ARNP. History of Present Illness Service Date and Time: 04/13/2024 1325 Previous diagnosis: Severe, Obstructive Sleep Apnea-Hypopnea Syndrome AHI: 44.8 (12/21/2017) Reason for follow up: annual (NOW HAVE RECORDS) Equipment type: ASV Equipment obtained from: Other (Vers[facility]; would like to switch to [facility]) Mask style: Nasal Backup mask available: Yes (old mask) Last cushion change: 3-4 weeks Prior sleep studies: Yes Year and Where: 2014 [facility] additional information: NADIYA RENTERIA was diagnosed to have severe, AHI 44.8, obstructive sleep apnea- hypopnea syndrome and returned today for BIPAP ASV therapy annual follow-up. Sleep Study - Results Prior sleep studies: Yes Year and Where: 2014 [place], [place] CPAP Compliance Data - Data Reviewed with Patient Average duration of nightly device use: 10 hours 37 minutes Compliance rate %: 90 (01/14/24-04/12/24; 81/90 days used) Current pressure setting (cmH2O): IPAP 14; EPAP 11-12, max 30; pressure support 3-6 Average residual AHI: 3.3 (avg periodic breathing 8.3%) Central apnea: 0.2 Obstructive apnea: 0.1 Hypopnea: 3 Average large leak: 12 mins 23 secs Compliance data discussion: He uses his machine nightly, may miss 1-2 times a year at most. He forgot to bring in his machine or SD card. Subjective Patient concerns: reports: dry mouth, nose, throat (1/3 of time). denies: aerophagia, mask discomfort, air blowing in eyes, mask leak noise, condensation in mask/hose, nasal congestion, epistaxis Observed to snore while using device: No Current pressure setting perceived as: comfortable On therapy, patient: reports: sleeping better, awakening more refreshed, being more awake and alert during the day, more rested overall. denies: drowsiness while driving Initial [place] Sleepiness Scale score: 3 (02/24/2023) Current [place] Sleepiness Scale score: 1 (04/13/24) Allergies and Home Medications Known drug allergies: No Drug allergies reviewed: Yes Home medication list reviewed: Yes (no changes) Allergy and home medication list: Allergies No Known Drug Allergies Allergy (Verified 04/11/24 11:46) Review of Systems Review of systems same as previous: Yes (NO CHANGE) Physical Exam Vital signs obtained and entered by: MILLIE Alfonso MA Blood Pressure: 131/86 (RIGHT ARM) Cuff size: regular Heart Rate: 73 O2 Saturation: 93 Height: 5 ft 8 in Weight: 198 lb 9.6 oz Weight change since last visit: 4 lb loss Body Mass Index: 30.2 BMI Classification: Obese Impression and Plan 1. Obstructive Sleep Apnea-Hypopnea Syndrome, severe, with good treatment compliance and god apnea control. On BIPAP ASV therapy, the patient has better sleep quality and is more rested overall. He would like to change to a local supplier for his CPAP supplies, [employer]. Patient advised to contact this office if further supply problems. His Dreamstation BiPAP ASV is at least 6-7 years old and of reasonable use. Thus, the CPAP will be updated. A DWO prescription will be made. Compliance guidelines for new device and follow up discussed. Patient's apnea severity and rationale for treatment to reduce apnea, improve sleep quality and reduce cardiovascular and cerebrovascular events was reviewed. I also reviewed the benefit of consistent device use of BIPAP for cardiac disease, depression. 2. Obesity, unspecified. Currently patients BMI is 30.2. Obesity increases the risk of apnea, BIPAP pressure requirements and overall health risks especially cardiovascular and diabetes. Thus patient is advised to lose weight. * Continue BIPAP ASV pressure at EPAP 11-13 cmH2O, maximum 30 cmH2O with 3-6 cmH2O pressure support * DME Transfer * Update machine * Update supply * Notify me if snoring with mask or feeling that the pressure is too much or too little * Attempt to lose weight * Call this office if any problems using CPAP * Return for follow up one month after obtaining new device, or sooner if concerns arise Counseling Topics: Weight loss health impact Prescriptions: Device supplies (with DME Transfer) Plan: update machine and compliance follow up Visit Type: In Office Time Spent with Patient (minutes): 28 Provider Statement: I spent 100% of the Face to Face Visit with the patient with greater than 50% spent counseling the patient and coordination of care.
[2024-04-13 14:17] VITALS: BP 131/86; O2SAT 93
== END 2024-04-13 13:26 | disposition home or self-care (01) ==
LOC: SC 13:25
PROVIDERS: ATTEND Nurse Practitioner Family
DX: G47.33 Obstructive sleep apnea (adult) (pediatric) (principal); E66.9 Obesity, unspecified; Z68.30 Body mass index [BMI] 30.0-30.9, adult
CPT/HCPCS: 99213; G0463; 99212

== ENCOUNTER 2025-06-06 15:42 | Inpatient (IN) ==
--- NOTE | 2025-06-06 16:17 | ED Physician Documentation ---
History of Present Illness Stated complaint Stated Complaint: AMS/FEVER Chief complaint Chief Complaint: Fever History obtained from History obtained from: Patient History of Present Illness Timing: Prior to arrival Additonal information Additional information: Patient is a 85 yo male year-old male presenting to the emergency department with COVID was diagnosed 4 to 5 days ago. He currently resides at [facility]. He was having increasing cough over the last few days. He has a GCS of 12 on arrival he has a history of dementia. He is on Plavix at baseline. He has cough, and congestion. Patient is a poor historian, majority of history obtaieed from EMS on their arrival. [place] Coma Scale Assess Eye opening: To Voice Verbal response: Oriented Motor response: Obeys Commands Total score: 14 Meds/Allgy Home Medications Ambulatory Orders Medication Instructions Recorded Confirmed pregabalin 300 mg capsule (Lyrica) 300 mg PO BID 02/2506/07/25 acetaminophen 325 mg tablet 650 mg PO Q6H PRN fever or pain 06/06/25 06/07/25 (Tylenol) atorvastatin 40 mg tablet 40 mg PO HS 06/06/25 5 bupropion HCl 150 mg 24 hr tablet, 150 mg PO DAILY 07/2106/07/25 extended release cholecalciferol (vitamin D3) 50 50 mcg PO DAILY 06/07/25 mcg (2,000 unit) tablet (Vitamin D3) clopidogrel 75 mg tablet 75 mg PO DAILY 06/06/2505/28 cyanocobalamin (vitamin B-12) 5,000 mcg PO DAILY 06/0606/07/25 5,000 mcg capsule docusate sodium 100 mg tablet 100 mg PO BID PRN consti pation 06/06/25 06/07/25 losartan 25 mg tablet (Cozaar) 12.5 mg PO DAILY 06/07/25 magnesium hydroxide 400 mg/5 mL 30 ml PO DAILY PRN con stipation 06/06/25 06/07/25 oral suspension (Milk of Magnesia) magnesium oxide 400 mg (241.3 mg 400 mg PO DAILY 06/0606/07/25 magnesium) tablet (MagOx) aspirin 81 mg tablet,delayed 81 mg PO DAILY 06/07/25 0 06/07/25 release levothyroxine 175 mcg tablet 175 mcg PO QDAC 06/07/25 06/07/25 white petrolatum 61 % topical 1 applic topical DIRE CTED PRN 06/07/25 06/07/25 cream (Murali Moisture Barrier skin irritation Cr) Allergies Allergies Allergy/AdvReac Type Severity Reaction Status Date / Time No Known Drug Allergies Allergy Verified 06/06/25 16:09 PFSH Active Problems All Active Problems (Updated 06/06/25 @ 21:03 by Grant Correa DNP) COVID-19 (Acute) Hypoxia (Acute) Breath shortness (Acute) Fever (Acute) Laceration of scalp (Acute) Fall from ground level (Acute) Medical History Medical History (Updated 06/06/25 @ 21:03 by Grant Correa DNP) Insomnia Paroxysmal A-fib Hypothyroid HLD (hyperlipidemia) Hx of cardiac pacemaker History of heart block Dementia Social History Social History Smoking Status: Smoker current status unk Do you dip or chew tobacco?: No Do you vape?: No Level: Assisted Do you feel safe in your home environment?: Yes History of physical, verbal, emotional, or financial abuse?: No POLST Patient has POLST: No Exam Exam Vital Signs: Vital Signs x48h Temp Pulse Resp BP Pulse Ox O2 Flow Rate 06/06/25 17:41 78 25 H 147/89 H 98 5 06/06/25 17:05 78 22 163/86 H 94 5 06/06/25 16:09 39.4 C H 94 32 H 159/79 H 88 L Constitutional normal general appearance HENMT normocephalic, head/scalp atraumatic and hearing grossly normal bilaterally Eyes PERRL, EOMs intact bilaterally and conjunctivae normal Neck/C-Spine visual inspection normal Respiratory Tachypnea with increased work of breathing here in the ED. No rhonchi wheezes or rales on auscultation Cardiovascular regular rhythm noted, no gallop and no rub Skin skin color normal Results Vitals Vitals: Oxygen O2 Source Nasal cannula Labs Labs: Microbiology 06/06/25 16:25 Blood Culture - Preliminary Blood - Right Hand NO GROWTH AFTER 2 DAYS 06/06/25 16:27 Blood Culture - Preliminary Blood - Left Hand NO GROWTH AFTER 2 DAYS Laboratory Tests 06/06/25 06/06/25 06/06/25 16:20 16:25 16:27 WBC 6.4 RBC 4.55 L Hgb 14.2 Hct 42.4 MCV 93.2 MCH 31.2 H MCHC 33.5 RDW 14.5 Plt Count 186 MPV 10.7 Neut # (Auto) Not Reportable Lymph # (Auto) Not Reportable Delta # (Auto) Not Reportable Eos # (Auto) Not Reportable Baso # (Auto) Not Reportable Absolute Nucleated RBC Not Reportable Band Neuts % (Manual) Not Reportable Abnorm Lymph % (Manual) Not Reportable Nucleated RBC % Not Reportable Neutrophils # (Manual) Not Reportable Lymphocytes # (Manual) Not Reportable Monocytes # (Manual) Not Reportable Eosinophils # (Manual) Not Reportable Basophils # (Manual) Not Reportable Differential Comment MANUAL DIFFERENTIAL Manual Slide Review Indicated WBC Morphology 1+ SMUDGE CELLS Platelet Estimate NORMAL (130-450,000) Platelet Morphology NORMAL APPEARANCE RBC Morph Micro Appear NORMAL APPEARANCE Sodium 138 Potassium 4.2 Chloride 105 Carbon Dioxide 27 Anion Gap 6.0 BUN 25 H Creatinine 1.3 Estimated GFR (MDRD) 52 L Glucose 108 H Lactic Acid 0.9 Calcium 9.0 Total Bilirubin 0.8 AST 25 ALT 28 Alkaline Phosphatase 59 B-Natriuretic Peptide 94 Total Protein 6.6 Albumin 4.3 Globulin 2.3 Albumin/Globulin Ratio 1.9 Procalcitonin Immunoas 0.11 TSH 0.38 PD Medical Decision Making ED course Complexity details: reviewed old records and reviewed results ED course: Patient is a n 85 yo male year-old male presenting to the emergency department with COVID was diagnosed 4 to 5 days ago. He currently resides at [facility]. He was having increasing cough over the last few days. He has a GCS of 12 on arrival he has a history of dementia. He is on Plavix at baseline. He has cough, and congestion. Patient is a poor historian, majority of history obtaiened from EMS on their arrival. Patient required 5 L nasal cannula secondary to 88% on room air chest x-ray shows no acute cardiopulmonary findings. BMP shows no signs of fluid overload lactic acid well within normal limits. CBC does show findings consistent with leukocytosis CMP is unremarkable pending UA at this time. Respiratory swab positive for COVID still. Delay in fluid treatment due to concerns for fluid overload. Patient covered for ceftriaxone for possible pneumonia, but CXR shows no acute cardiopulmonary findings here in the ED. CT/PE: 1. No pulmonary embolism. 2. No consolidation. Dependent atelectasis. No pleural effusion. Discussed case with hospitalist who accepts patient for admission. Grant INFORMATICS MANAGER came down to evaluate patient. Patient appears to be doing much better at time of admission more awake answering questions ANO x 2 oxygen karsten at 5 L per nasal cannula. Discharge Plan Discharge Patient Disposition: [facility] DC/Xfer Condition: Stable Clinical Impression: Fever, Breath shortness, Hypoxia Interventions: ED Admission Assessment Last Done: 06/06/25 20:05 Vitals documented within 30 minutes of discharge?: Yes
[2025-06-06 16:35] LABS: HCT - HEMATOCRIT 42.4 % (42.0-52.0); HGB - HEMOGLOBIN 14.2 g/dL (14.0-18.0); MEAN PLATELET VOLUME 10.7 fL (7.4-11.4); PLT - PLATELET COUNT 186 10^3/uL (130-450); RED CELL DISTRIBUTION WIDTH 14.5 % (12.0-15.0)
[2025-06-06 16:44] LABS: SLIDE REVIEW? Indicated
[2025-06-06 16:49] LABS: ALT ALANINE AMINOTRANSFERASE 28.0 IU/L (10-60); AST ASPARTATE AMINOTRANSFERASE 25.0 IU/L (10-42); BUN - BLOOD UREA NITROGEN 25.0 mg/dL (6-20); CARBON DIOXIDE - CO2 27.0 mmol/L (21-32); CREATININE 1.3 mg/dL (0.6-1.3); GFR - MDRD 52.0 (>89)
--- NOTE | 2025-06-06 16:57 | XRAY Report ---
PROCEDURE: XR Chest 1V INDICATIONS: Sepsis TECHNIQUE: One view of the chest was acquired. COMPARISON: 05/05/2021. FINDINGS: Surgical changes and devices: Pacemaker Lungs and pleura: No pleural effusions or pneumothorax. No consolidation. Mediastinum: Mediastinal contours appear normal. Heart size is normal. Bones and chest wall: No suspicious bony lesions. Overlying soft tissues appear unremarkable. IMPRESSION: No acute cardiopulmonary process. Reviewed by: Avtar Peña MD on 06/06/2025 4:56 PM PDT Approved by: Avtar Peña MD on 06/06/2025 4:56 PM PDT Station ID: [id number]
[2025-06-06] MEDS: ACETAMINOPHEN 500 MG TABLET PO STA (16:58)
--- OUTSIDE RECORDS SUMMARY | 2025-06-06 17:13 | EXTERNAL MEDICAL SUMMARY RPT | Continuity of Care Document ---
Author Organization [facility] Address [address] [place] [address] Phone Problems date description facility 2025-04-27 12:41 Laceration without f oreign body of scalp, [facility] 2025-04-27 12:50 Laceration without f oreign body of scalp, [facility] 2025-04-27 12:50 Unspecified injury of head, [facility] Social History date description facility
[2025-06-06 17:24] LABS: PLATELET ESTIMATE, MANUAL NORMAL (130-450,000) (NORMAL); PLATELET MORPHOLOGY NORMAL APPEARANCE (NORMAL); RBC MORPHOLOGY (MULTIPLE) NORMAL APPEARANCE (NORMAL)
[2025-06-06 17:25] LABS: WBC MORPHOLOGY (MULTIPLE) 1+ SMUDGE CELLS (NORMAL)
[2025-06-06] MEDS: SODIUM CHLORIDE 0.9% 1,000 ML IV STA (18:14)
[2025-06-06] MEDS: cefTRIAXone 1 GM VIAL IVP STA (18:23)
--- NOTE | 2025-06-06 18:37 | CT Report ---
PROCEDURE: CT Angio Chest INDICATIONS: concern for new hypoxia with normal CXR CONTRAST: OMNI 300, 85ML TECHNIQUE: After the administration of intravenous contrast, 2 mm axial images were acquired from the pulmonary apices to the posterior costophrenic angles during the arterial phase. In addition, 1 mm lung kernel and 5 mm soft tissue kernel reconstructions were performed. 3-dimensional coronal oblique maximum intensity projection (MIP) reformats, 8 mm axial MIP, and 5 mm coronal and sagittal MPR reformats were then performed through the thorax. For radiation dose reduction, the following was used: automated exposure control, adjustment of mA and/or kV according to patient size. COMPARISON: CXR earlier today. CT abdomen and pelvis 02/09/2019. FINDINGS: Image quality: Excellent. Large vessels: No filling defects within the opacified pulmonary arteries, accounting for motion and contrast timing. No evidence of acute aortic syndrome or aortic aneurysm. Lungs and pleura: No consolidation. Dependent atelectasis. No pleural effusions. No pneumothorax. -Right middle lobe pulmonary nodule measuring 0.3 cm (6/162), unchanged since 2019. -Right middle lobe pulmonary nodule measuring 0.5 cm (6/168), unchanged since 2019. Mediastinum: Left pacemaker. Heart size is normal. No pericardial effusion. No large vessel abnormality. No mediastinal adenopathy by size criteria. Chest wall and lower neck: Thyroid is unremarkable. No axillary or supraclavicular adenopathy by size. Bones: No aggressive osseous abnormality. Prior left-sided rib fracture. Upper Abdomen: Subtle hypodensities in the liver. Corresponding to cysts seen on remote CT. IMPRESSION: 1. No pulmonary embolism. 2. No consolidation. Dependent atelectasis. No pleural effusion. Reviewed by: Robin Phillips MD on 06/06/2025 6:36 PM PDT Approved by: Robin Phillips MD on 06/06/2025 6:36 PM PDT Station ID: [id number]
[2025-06-06] MEDS ORDERED: IPRATROPIUM/ALBUTEROL 3 ML NEB INH ONE (18:38)
[2025-06-06] MEDS: IPRATROPIUM/ALBUTEROL 3 ML NEB INH STA (18:41)
--- NOTE | 2025-06-06 19:17 | HISTORY & PHYSICAL EXAMINATION ---
Chief Complaint Chief Complaint Chief Complaint: Altered mental status History of Present Illness Admitted From Admitted From:: [facility] History Obtained From History obtained from: Chart review Exam Limitations: Baseline dementia History of Present Illness HPI Comment/Other: 85-year-old male who is a resident of [facility] who has been having increasing cough over the past few days as well as fevers. He was sent to the emergency department because of altered mentation, GCS 12 on arrival. On Plavix at baseline. Of note, he was diagnosed with COVID 5 days ago In the ER, workup again revealed coronavirus. Chest x-ray was performed which showed no acute abnormality. CTA chest was performed which similarly showed no abnormality. Patient was however hypoxic, and required 5 L O2 to maintain saturation above 90%. Patient was also febrile to 39.4 Celsius, had respiratory rate of 32. given this new hypoxia, hospitalist was contacted for admission for acute hypoxic respiratory failure secondary to COVID-19 Meds/Allgy Home Medications Ambulatory Orders Medication Instructions Recorded Confirmed aspirin 81 mg capsule ([place]) 81 mg PO DAILY 06/06/25 levothyroxine 150 mcg capsule 150 mcg PO DAILY 3 06/06/25 pregabalin 300 mg capsule (Lyrica) 300 mg PO BID 02/2506/06/25 acetaminophen 325 mg tablet 325 mg PO Q6H PRN fever or pain 06/06/25 06/06/25 (Tylenol) atorvastatin 40 mg tablet 40 mg PO HS 06/06/25 5 bupropion HCl 150 mg 24 hr tablet, 150 mg PO DAILY 07/2106/06/25 extended release cholecalciferol (vitamin D3) 50 50 mcg PO DAILY 06/06/25 mcg (2,000 unit) tablet (Vitamin D3) clopidogrel 75 mg tablet 75 mg PO DAILY 06/06/2505/28 cyanocobalamin (vitamin B-12) 5,000 mcg PO DAILY 06/0606/06/25 5,000 mcg capsule docusate sodium 100 mg tablet 100 mg PO BID PRN consti pation 06/06/25 06/06/25 losartan 25 mg tablet (Cozaar) 12.5 mg PO DAILY 06/06/25 magnesium hydroxide 400 mg/5 mL 30 ml PO DAILY PRN con stipation 06/06/25 06/06/25 oral suspension (Milk of Magnesia) magnesium oxide 400 mg (241.3 mg 400 mg PO DAILY 06/0606/06/25 magnesium) tablet (MagOx) metoprolol succinate 25 mg 25 mg PO DAILY 06/06/2507/21 tablet,extended release 24 hr Allergies Allergies Allergy/AdvReac Type Severity Reaction Status Date / Time No Known Drug Allergies Allergy Verified 06/06/25 16:09 PFSH Active Problems All Active Problems (Updated 06/06/25 @ 21:03 by Grant Correa DNP) COVID-19 (Acute) Hypoxia (Acute) Breath shortness (Acute) Fever (Acute) Laceration of scalp (Acute) Fall from ground level (Acute) Medical History Medical History (Updated 06/06/25 @ 21:03 by Grant Correa DNP) Insomnia Paroxysmal A-fib Hypothyroid HLD (hyperlipidemia) Hx of cardiac pacemaker History of heart block Dementia Social History Social History Do you feel safe in your home environment?: Yes History of physical, verbal, emotional, or financial abuse?: No POLST Patient has POLST: No Review of Systems ROS is very difficult due to patient's baseline dementia as well as acute altered mental status Exam Exam Vital Signs: Vital Signs x48h Temp Pulse Resp BP Pulse Ox O2 Flow Rate 06/06/25 20:00 80 20 119/73 97 06/06/25 18:43 84 24 06/06/25 18:30 38.2 C H 06/06/25 18:15 78 24 127/76 92 5 06/06/25 18:00 87 28 H 87 L 3 06/06/25 17:45 78 93 5 06/06/25 17:41 78 25 H 147/89 H 98 5 06/06/25 17:05 78 22 163/86 H 94 5 06/06/25 16:09 39.4 C H 94 32 H 159/79 H 88 L Constitutional Disheveled elderly male in no acute distress HENAZ normocephalic and head/scalp atraumatic Eyes PERRL Respiratory breath sounds equal bilaterally and clear to auscultation bilaterally Cardiovascular normal heart rate noted and regular rhythm noted Gastrointestinal abdomen normal to inspection and abdomen soft to palpation Genitourinary no CVA tenderness Extremities normal to inspection Neurology GCS calculation - Eye opening: Spontaneous Verbal response: Confused Motor response: Obeys Commands [place] Coma Scale total score: 14 Psychiatry Oriented x 2, follows commands. Unsure his baseline Skin skin color normal Conclusion/Plan Problem List (1) Hypoxia: Plan: I believe his hypoxia secondary to COVID-19 Chest x-ray negative CTA shows no PE Manage COVID as below Wean O2 as tolerated (2) COVID-19: Plan: Notably COVID-positive 5 days ago Unsure at this time if he was on a steroid I gave him 10 mg Decadron IV push x 1, and he will start a 6 mg p.o. burst tomorrow Check procalcitonin to see if he has a superimposed bacterial infection DuoNeb as needed RT 4 times daily (3) Dementia: Plan: Patient has underlying dementia, but I see no record of what his baseline mental status is I have not had any response from family members or his facility yet His acute alteration of mental status is likely secondary to his hypoxia, manage as above Follow-up UA Plan Admit inpatient med floor for COVID-19 requiring supplemental O2 Patient is not oriented enough to determine his CODE STATUS, no POLST on file, maintain full code for now Chioma Ji is his listed next of kin. Nursing staff are attempting to get in contact for further details Lab Results Lab results reviewed: Yes 06/06/25 16:20 06/06/25 16:20 Core Measures DVT/VTE - Prophylaxis VTE/DVT Prophylaxis med ordered at admit?: Yes
--- OUTSIDE RECORDS SUMMARY | 2025-06-06 19:20 | EXTERNAL MEDICAL SUMMARY RPT | Continuity of Care Document ---
Author Organization [facility] Address [address] [place] [address] Phone Problems date description facility 2025-04-27 12:41 Lac[facility] without f [facility] 2025-04-27 12:50 Laceration without f oreign body of scalp[facility] 2025-04-27 12:50 Unspecified injury of head, [facility] Social History date description facility
[2025-06-06] MEDS: DEXAMETHASONE 10 MG/ML VIAL IVP STA (19:24)
[2025-06-06 19:29] LABS: VBG BASE EXCESS -4.0 mmol/L (-2 - +2); VBG PCO2 33.1 mmHg (41-51); VBG PH 7.404 (7.31-7.41); VBG PO2 110.8 mmHg (25-47); VBG TOTAL CO2 21.9 mmol/L (24-29)
[2025-06-06] MEDS ORDERED: IPRATROPIUM/ALBUTEROL 3 ML NEB INH PRN (20:18)
[2025-06-06] MEDS ORDERED: ACETAMINOPHEN 325 MG TABLET PO PRN (20:18)
[2025-06-06] MEDS ORDERED: ONDANSETRON ODT 4 MG TABLET TL PRN (20:18)
[2025-06-06] MEDS ORDERED: SODIUM CHLORIDE FLUSH 0.9% 10 ML SYRINGE IVP PRN (20:18)
[2025-06-06] MEDS ORDERED: ONDANSETRON 4 MG/2 ML VIAL IVP PRN (20:18)
[2025-06-06] MEDS: LACTATED RINGERS 1,000 ML IV SCH (20:40)
[2025-06-06 20:51] LABS: CORONAVIRUS 229E-RESP PCR NOT DETECTED; CORONAVIRUS HKU1-RESP PCR NOT DETECTED; CORONAVIRUS NL63-RESP PCR NOT DETECTED; CORONAVIRUS OC43-RESP PCR NOT DETECTED
[2025-06-06 20:53] LABS: B. PARAPERTUSSIS- RESP PCR PAN NOT DETECTED; B. PERTUSSIS- RESP PCR PANEL NOT DETECTED; C. PNEUMONIAE- RESP PCR PANEL NOT DETECTED; HUMAN METAPNEUMOVIRUS NOT DETECTED; INFLUENZA A- RESP PCR PANEL NOT DETECTED; INFLUENZA B - RESP PCR PANEL NOT DETECTED; M. PNEUMONIAE- RESP PCR PANEL NOT DETECTED; PARAINFLUENZA VIRUS 1 NOT DETECTED; PARAINFLUENZA VIRUS 2 NOT DETECTED; PARAINFLUENZA VIRUS 4 NOT DETECTED; RHINOVIRUS/ENTEROVIRUS NOT DETECTED; RSV- RESP PCR PANEL NOT DETECTED; SARS-CoV-2 -RESP PCR PANEL DETECTED
[2025-06-07] MEDS: SODIUM CHLORIDE FLUSH 0.9% 10 ML SYRINGE IVP SCH (00:26)
[2025-06-07 02:32] LABS: GLUCOSE, URINE (UA) NEGATIVE (NEGATIVE); KETONES,URINE (UA) 40 mg/dL (NEGATIVE); OCCULT BLOOD,URINE SMALL (NEGATIVE); SQUAMOUS EPITHELIAL CELL,UR FEW Squamous (<= Few)
[2025-06-07 05:31] LABS: HCT - HEMATOCRIT 37.5 % (42.0-52.0); HGB - HEMOGLOBIN 12.7 g/dL (14.0-18.0); MEAN PLATELET VOLUME 10.6 fL (7.4-11.4); NRBC ABSOLUTE COUNT (AUTO) 0.00 x10^3/uL; NUCLEATED RED BLOOD CELLS AUTO 0.0 /100WBC; PLT - PLATELET COUNT 158 10^3/uL (130-450); RED CELL DISTRIBUTION WIDTH 14.2 % (12.0-15.0)
[2025-06-07 05:49] LABS: BUN - BLOOD UREA NITROGEN 23.0 mg/dL (6-20); CARBON DIOXIDE - CO2 22.0 mmol/L (21-32); CREATININE 1.0 mg/dL (0.6-1.3); GFR - MDRD 71.0 (>89)
[2025-06-07] MEDS: ENOXAPARIN 40 MG/0.4 ML SYRINGE SUBQ SCH (08:28)
--- NOTE | 2025-06-07 13:39 | PROVIDER PROGRESS NOTE ---
Subjective Prog Note Date Prog Note Date: 06/07/25 Subjective Pt reports feeling: Improved Current Medications Current Medications Current Medications: Current Medications Generic Name Dose Route Start Last Admin Trade Name Freq PRN Reason Stop Dose Admin Acetaminophen 650 mg 06/06/25 20:18 Acetaminophen 325 Mg Tablet PO Q4HR PRN Pain 1 to 4, or Fever Albuterol/Ipratropium 3 ml 06/06/25 20:18 Ipratropium/Albuterol 3 Ml Neb INH RTQID PRN Shortness of Air/Wheezing Dexamethasone 6 mg 06/07/25 09:00 06/07/25 08:28 Dexamethasone 4 Mg Tablet PO 6 mg DAILY ALEJANDRINA Administration Enoxaparin Sodium 40 mg 06/07/25 09:00 06/07/25 08:28 Enoxaparin 40 Mg/0.4 Ml Syringe SUBQ 40 mg DAILY ALEJANDRINA Administration Lactated Ringer's 1,000 mls @ 100 mls/hr 06/06/25 20:18 06/07/25 05:44 Lr IV 100 mls/hr .Q10H ALEJANDRINA Administration Ondansetron HCl 4 mg 06/06/25 20:18 Ondansetron Odt 4 Mg Tablet TL Q6HR PRN Nausea / Vomiting Ondansetron HCl 4 mg 06/06/25 20:18 Ondansetron 4 Mg/2 Ml Vial IVP Q6HR PRN Nausea / Vomiting Sodium Chloride 10 ml 06/06/25 20:18 Sodium Chloride Flush 0.9% 10 Ml Syringe IVP PRN PRN NEEDED PER PROVIDER ORDERS Sodium Chloride 10 ml 06/07/25 01:00 06/07/25 08:29 Sodium Chloride Flush 0.9% 10 Ml Syringe IVP 10 ml 0100,0900,1700 ALEJANDRINA Administration Objective Vital Signs/Intake & Output Reviewed Vital Signs: Yes Vital Signs: Vital Signs x48h Temp Pulse Resp BP Pulse Ox O2 Flow Rate 06/07/25 07:40 1 06/07/25 07:40 36.5 C 69 18 125/66 96 1 Intake & Output: Intake & Output 06/04/25 06/05/25 06/06/25 06/07/25 23:59 23:59 23:59 23:59 Intake Total 1000 / 1000 1147 / 1147 Output Total Balance 1000 / 1000 1137 / 1137 Weight (kg) 89 kg Objective General Appearance: positive No acute distress and Alert Eyes Bilateral: positive Normal inspection Neck: positive Nml inspection Respiratory: positive Chest non-tender Cardiovascular: positive Regular rate & rhythm and No murmur Abdomen: positive Non-tender Back: positive Nml inspection Skin: positive Color nml Extremities: positive Non-tender Neurologic/Psychiatric: positive Other (Orientation varies between x 1 to x 2. Unsure what his baseline is) Lab Results 06/07/25 05:07 06/07/25 05:07 Other Labs: Lab Results x24hrs 06/07/25 06/07/25 06/06/25 Range/Units 05:07 02:10 19:51 WBC 6.1 (4.8-10.8) x10^3/uL RBC 4.03 L (4.70-6.10) 10^6/uL Hgb 12.7 L (14.0-18.0) g/dL Hct 37.5 L (42.0-52.0) % MCV 93.1 (80.0-94.0) fL MCH 31.5 H (27.0-31.0) pg MCHC 33.9 (32.0-36.0) g/dL RDW 14.2 (12.0-15.0) % Plt Count 158 (130-450) 10^3/uL MPV 10.6 (7.4-11.4) fL Neut # (Auto) 4.6 Lymph # (Auto) 0.6 L [place] # (Auto) 0.9 Eos # (Auto) 0.0 Baso # (Auto) 0.0 Absolute Nucleated RBC 0.00 Band Neuts % (Manual) Abnorm Lymph % (Manual) Nucleated RBC % 0.0 Neutrophils # (Manual) Lymphocytes # (Manual) Monocytes # (Manual) Eosinophils # (Manual) Basophils # (Manual) Differential Comment Manual Slide Review WBC Morphology (NORMAL) Platelet Estimate (NORMAL) Platelet Morphology (NORMAL) RBC Morph Micro Appear (NORMAL) VBG pH (7.31-7.41) VBG pCO2 (41-51) mmHg VBG pO2 (25-47) mmHg VBG HCO3 (23-28) mmol/L VBG Total CO2 (24-29) mmol/L VBG O2 Saturation (60-80) % VBG Base Excess (-2 - +2) mmol/L Sodium 136 (135-145) mmol/L Potassium 3.9 (3.5-4.5) mmol/L Chloride 105 (101-111) mmol/L Carbon Dioxide 22 (21-32) mmol/L Anion Gap 9.0 (6-13) BUN 23 H (6-20) mg/dL Creatinine 1.0 (0.6-1.3) mg/dL Estimated GFR (MDRD) 71 L (>89) Glucose 145 H (74-104) mg/dL Lactic Acid (0.5-2.2) mmol/L Calcium 8.1 L (8.5-10.3) mg/dL Total Bilirubin (0.2-1.0) mg/dL AST (10-42) IU/L ALT (10-60) IU/L Alkaline Phosphatase (42-121) IU/L B-Natriuretic Peptide (5-100) pg/mL Total Protein (6.4-8.9) g/dL Albumin (3.2-5.5) g/dL Globulin (2.1-4.2) g/dL Albumin/Globulin Ratio (1.0-2.2) Procalcitonin Immunoas (<0.5) ng/mL TSH (0.34-5.60) uIU/mL Urine Color YELLOW Urine Clarity CLEAR (CLEAR) Urine pH 6.0 (5.0-7.5) PH Ur Specific [place] 1.025 (1.002-1.030) Urine Protein NEGATIVE (NEGATIVE) mg/dL Urine Glucose (UA) NEGATIVE (NEGATIVE) mg/dL Urine Ketones 40 H (NEGATIVE) mg/dL Urine Occult Blood SMALL (NEGATIVE) Urine Nitrite NEGATIVE (NEGATIVE) Urine Bilirubin NEGATIVE (NEGATIVE) Urine Urobilinogen 0.2 (NORMAL) (NORMAL) E.U./dL Ur Leukocyte Esterase NEGATIVE (NEGATIVE) Urine RBC 0-5 (0-5) /HPF Urine WBC 0-3 (0-3) /HPF Ur Squamous Epith Cells FEW Squamous (<= Few) Urine Bacteria Rare (None Seen) /HPF Urine Culture Comments NOT INDICATED Nasal Adenovirus (PCR) NOT DETECTED Nasal B. parapertussis DNA (PCR) NOT DETECTED Nasal Coronavir 229E PCR NOT DETECTED Nasal Coronavir HKU1 PCR NOT DETECTED Nasal Coronavir NL63 PCR NOT DETECTED Nasal Coronavir OC43 PCR NOT DETECTED Nasal Enterovir/Rhinovir PCR NOT DETECTED Nasal Influenza B PCR NOT DETECTED Nasal Influenza A PCR NOT DETECTED Nasal Parainfluen 1 PCR NOT DETECTED Nasal Parainfluen 2 PCR NOT DETECTED Nasal Parainfluen 3 PCR NOT DETECTED Nasal Parainfluen 4 PCR NOT DETECTED Nasal RSV (PCR) NOT DETECTED Nasal B.pertussis DNA PCR NOT DETECTED Nasal C.pneumoniae (PCR) NOT DETECTED Sebas Human Metapneumo PCR NOT DETECTED Nasal M.pneumoniae (PCR) NOT DETECTED Nasal SARS-CoV-2 (PCR) DETECTED A 06/06/25 06/06/25 06/06/25 Range/Units 19:15 16:27 16:25 WBC (4.8-10.8) x10^3/uL RBC (4.70-6.10) 10^6/uL Hgb (14.0-18.0) g/dL Hct (42.0-52.0) % MCV (80.0-94.0) fL MCH (27.0-31.0) pg MCHC (32.0-36.0) g/dL RDW (12.0-15.0) % Plt Count (130-450) 10^3/uL MPV (7.4-11.4) fL Neut # (Auto) Lymph # (Auto) [place] # (Auto) Eos # (Auto) Baso # (Auto) Absolute Nucleated RBC Band Neuts % (Manual) Abnorm Lymph % (Manual) Nucleated RBC % Neutrophils # (Manual) Lymphocytes # (Manual) Monocytes # (Manual) Eosinophils # (Manual) Basophils # (Manual) Differential Comment Manual Slide Review WBC Morphology (NORMAL) Platelet Estimate (NORMAL) Platelet Morphology (NORMAL) RBC Morph Micro Appear (NORMAL) VBG pH 7.404 (7.31-7.41) VBG pCO2 33.1 L (41-51) mmHg VBG pO2 110.8 H (25-47) mmHg VBG HCO3 20.9 L (23-28) mmol/L VBG Total CO2 21.9 L (24-29) mmol/L VBG O2 Saturation 99.0 H (60-80) % VBG Base Excess -4.0 L (-2 - +2) mmol/L Sodium (135-145) mmol/L Potassium (3.5-4.5) mmol/L Chloride (101-111) mmol/L Carbon Dioxide (21-32) mmol/L Anion Gap (6-13) BUN (6-20) mg/dL Creatinine (0.6-1.3) mg/dL Estimated GFR (MDRD) (>89) Glucose (74-104) mg/dL Lactic Acid 0.9 (0.5-2.2) mmol/L Calcium (8.5-10.3) mg/dL Total Bilirubin (0.2-1.0) mg/dL AST (10-42) IU/L ALT (10-60) IU/L Alkaline Phosphatase (42-121) IU/L B-Natriuretic Peptide 94 (5-100) pg/mL Total Protein (6.4-8.9) g/dL Albumin (3.2-5.5) g/dL Globulin (2.1-4.2) g/dL Albumin/Globulin Ratio (1.0-2.2) Procalcitonin Immunoas (<0.5) ng/mL TSH 0.38 (0.34-5.60) uIU/mL Urine Color Urine Clarity (CLEAR) Urine pH (5.0-7.5) PH Ur Specific [place] (1.002-1.030) Urine Protein (NEGATIVE) mg/dL Urine Glucose (UA) (NEGATIVE) mg/dL Urine Ketones (NEGATIVE) mg/dL Urine Occult Blood (NEGATIVE) Urine Nitrite (NEGATIVE) Urine Bilirubin (NEGATIVE) Urine Urobilinogen (NORMAL) E.U./dL Ur Leukocyte Esterase (NEGATIVE) Urine RBC (0-5) /HPF Urine WBC (0-3) /HPF Ur Squamous Epith Cells (<= Few) Urine Bacteria (None Seen) /HPF Urine Culture Comments Nasal Adenovirus (PCR) Nasal B. parapertussis DNA (PCR) Nasal Coronavir 229E PCR Nasal Coronavir HKU1 PCR Nasal Coronavir NL63 PCR Nasal Coronavir OC43 PCR Nasal Enterovir/Rhinovir PCR Nasal Influenza B PCR Nasal Influenza A PCR Nasal Parainfluen 1 PCR Nasal Parainfluen 2 PCR Nasal Parainfluen 3 PCR Nasal Parainfluen 4 PCR Nasal RSV (PCR) Nasal B.pertussis DNA PCR Nasal C.pneumoniae (PCR) Sebas Human Metapneumo PCR Nasal M.pneumoniae (PCR) Nasal SARS-CoV-2 (PCR) 06/06/25 Range/Units 16:20 WBC 6.4 (4.8-10.8) x10^3/uL RBC 4.55 L (4.70-6.10) 10^6/uL Hgb 14.2 (14.0-18.0) g/dL Hct 42.4 (42.0-52.0) % MCV 93.2 (80.0-94.0) fL MCH 31.2 H (27.0-31.0) pg MCHC 33.5 (32.0-36.0) g/dL RDW 14.5 (12.0-15.0) % Plt Count 186 (130-450) 10^3/uL MPV 10.7 (7.4-11.4) fL Neut # (Auto) Not Reportable Lymph # (Auto) Not Reportable [place] # (Auto) Not Reportable Eos # (Auto) Not Reportable Baso # (Auto) Not Reportable Absolute Nucleated RBC Not Reportable Band Neuts % (Manual) Not Reportable Abnorm Lymph % (Manual) Not Reportable Nucleated RBC % Not Reportable Neutrophils # (Manual) Not Reportable Lymphocytes # (Manual) Not Reportable Monocytes # (Manual) Not Reportable Eosinophils # (Manual) Not Reportable Basophils # (Manual) Not Reportable Differential Comment MANUAL DIFFERENTIAL Manual Slide Review Indicated WBC Morphology 1+ SMUDGE CELLS (NORMAL) Platelet Estimate NORMAL (130-450,000) (NORMAL) Platelet Morphology NORMAL APPEARANCE (NORMAL) RBC Morph Micro Appear NORMAL APPEARANCE (NORMAL) VBG pH (7.31-7.41) VBG pCO2 (41-51) mmHg VBG pO2 (25-47) mmHg VBG HCO3 (23-28) mmol/L VBG Total CO2 (24-29) mmol/L VBG O2 Saturation (60-80) % VBG Base Excess (-2 - +2) mmol/L Sodium 138 (135-145) mmol/L Potassium 4.2 (3.5-4.5) mmol/L Chloride 105 (101-111) mmol/L Carbon Dioxide 27 (21-32) mmol/L Anion Gap 6.0 (6-13) BUN 25 H (6-20) mg/dL Creatinine 1.3 (0.6-1.3) mg/dL Estimated GFR (MDRD) 52 L (>89) Glucose 108 H (74-104) mg/dL Lactic Acid (0.5-2.2) mmol/L Calcium 9.0 (8.5-10.3) mg/dL Total Bilirubin 0.8 (0.2-1.0) mg/dL AST 25 (10-42) IU/L ALT 28 (10-60) IU/L Alkaline Phosphatase 59 (42-121) IU/L B-Natriuretic Peptide (5-100) pg/mL Total Protein 6.6 (6.4-8.9) g/dL Albumin 4.3 (3.2-5.5) g/dL Globulin 2.3 (2.1-4.2) g/dL Albumin/Globulin Ratio 1.9 (1.0-2.2) Procalcitonin Immunoas 0.11 (<0.5) ng/mL TSH (0.34-5.60) uIU/mL Urine Color Urine Clarity (CLEAR) Urine pH (5.0-7.5) PH Ur Specific [place] (1.002-1.030) Urine Protein (NEGATIVE) mg/dL Urine Glucose (UA) (NEGATIVE) mg/dL Urine Ketones (NEGATIVE) mg/dL Urine Occult Blood (NEGATIVE) Urine Nitrite (NEGATIVE) Urine Bilirubin (NEGATIVE) Urine Urobilinogen (NORMAL) E.U./dL Ur Leukocyte Esterase (NEGATIVE) Urine RBC (0-5) /HPF Urine WBC (0-3) /HPF Ur Squamous Epith Cells (<= Few) Urine Bacteria (None Seen) /HPF Urine Culture Comments Nasal Adenovirus (PCR) Nasal B. parapertussis DNA (PCR) Nasal Coronavir 229E PCR Nasal Coronavir HKU1 PCR Nasal Coronavir NL63 PCR Nasal Coronavir OC43 PCR Nasal Enterovir/Rhinovir PCR Nasal Influenza B PCR Nasal Influenza A PCR Nasal Parainfluen 1 PCR Nasal Parainfluen 2 PCR Nasal Parainfluen 3 PCR Nasal Parainfluen 4 PCR Nasal RSV (PCR) Nasal B.pertussis DNA PCR Nasal C.pneumoniae (PCR) [place] Human Metapneumo PCR Nasal M.pneumoniae (PCR) Nasal SARS-CoV-2 (PCR) Assessment/Plan Problem List (1) Hypoxia: Impression: I believe his hypoxia secondary to COVID-19 infection Chest x-ray negative CTA shows no acute findings Manage COVID as below (2) COVID-19: Impression: Positive for COVID 5 days prior to presentation Continue Decadron burst at 6 mg p.o. daily Procalcitonin negative, signifying it is unlikely that he has superimposed bacterial infection Continue DuoNeb RT 4 times daily Wean O2 as tolerated Anticipate readiness for discharge tomorrow (3) Dementia: Impression: Patient has underlying dementia, but I see no record of what his baseline mental status is I have not had any response from family members or his facility yet His acute alteration of mental status is likely secondary to his hypoxia, manage as above UA nonconcerning for infection
--- NOTE | 2025-06-07 13:59 | PHARMACY PROGRESS NOTE ---
Best Possible Medication History Admit Date and Time: 06/06/25 185 Home Medications Medication Instructions Recorded Confirmed Type pregabalin 300 mg capsule (Lyrica) 300 mg PO BID 02/2506/07/25 History acetaminophen 325 mg tablet 650 mg PO Q6H PRN fever or pain 06/06/25 06/07/25 History (Tylenol) atorvastatin 40 mg tablet 40 mg PO HS 06/06/25 5 History bupropion HCl 150 mg 24 hr tablet, 150 mg PO DAILY 07/2106/07/25 History extended release cholecalciferol (vitamin D3) 50 50 mcg PO DAILY 06/07/25 History mcg (2,000 unit) tablet (Vitamin D3) clopidogrel 75 mg tablet 75 mg PO DAILY 06/06/2505/28 History cyanocobalamin (vitamin B-12) 5,000 mcg PO DAILY 06/0606/07/25 History 5,000 mcg capsule docusate sodium 100 mg tablet 100 mg PO BID PRN consti pation 06/06/25 06/07/25 History losartan 25 mg tablet (Cozaar) 12.5 mg PO DAILY 06/07/25 History magnesium hydroxide 400 mg/5 mL 30 ml PO DAILY PRN con stipation 06/06/25 06/07/25 History oral suspension (Milk of Magnesia) magnesium oxide 400 mg (241.3 mg 400 mg PO DAILY 06/0606/07/25 History magnesium) tablet (MagOx) aspirin 81 mg tablet,delayed 81 mg PO DAILY 06/07/25 0 06/07/25 History release levothyroxine 175 mcg tablet 175 mcg PO QDAC 06/07/25 06/07/25 History white petrolatum 61 % topical 1 applic topical DIRE CTED PRN 06/07/25 06/07/25 History cream (Murali Moisture Barrier skin irritation Cr) Processed by: Nursing Medications reviewed in ED?: Yes Medication History completed: Yes Patient Interview: Pt unable to participate Secondary Source(s): Facility MAR as ONLY source [facility] Statement: As the person ultimately responsible for medication therapy, providers are able to order a medication from an existing home medication list in [facility] via the "Reconcile Routine" prior to Confirmation of that medication by sales support advisor. Such practice is discouraged except when the physician, in their clinical judgment, deems that a medical need exists for a medication without regard to previous use.
--- NOTE | 2025-06-07 16:54 | PT Plan of Care ---
PT Plan of Care Physical Therapy Plan of Care: Diagnosis Diagnosis covid c hypoxia Diagnosis AMS Referring Provider Grant Correa Patient Status Inpatient Chief Complaint Chief Complaint none stated by pt Medical History (Updated 06/06/25 @ 21:03 by Grant Correa, MARQUEZ) Insomnia Paroxysmal A-fib Hypothyroid HLD (hyperlipidemia) Hx of cardiac pacemaker History of heart block Dementia Balance/ Functional Results Sitting Balance Good Standing Balance Poor Assessment Assessment Pt is an 85yo M referred for PT eval d/t deconditioning and limited mobility. Admitted with covid c hypoxia, initially requiring 5L O2, now weaned to RA. Pt lives at [facility] and is Leon at baseline using FWW. Per team report, pt does frequently amb without a walker and has fallen at [facility] d/t this. Baseline dementia (A&Ox2 ), please see medical record for further PMH. Cleared for eval by hospitalist. Upon PT eval, met supine in bed vitals on RA, SpO2 95% WNL and agreeable to participate. A&Ox1. Transfers to EOB, STS and short distance ambulation in room with FWW overall requiring minAx1. Gait pattern notable for WBOS and LOB upon turns. Pt will benefit from 2 person assist with nsg d/t difficulty managing FWW and fall risk. Overall pt presenting with exacerbated cognitive issues, gait and balance impairments and high fall risk . Will benefit from skilled PT in acute setting to improve safety and progress activity tolerance. When medically clear, PT rec dc to SNF prior to return to [facility] in order to address above impairments. Goals Improve bed mobility to: Modified Independent Improve supine to sit to: Modified Independent Improve sit to stand to: Contact Guard Improve pivot transfer ability Contact Guard to: Improve sit to supine to: Contact Guard Improve gait ability to: CGA Assistive Device Used: Front Wheeled Walker PT Plan of Care Frequency 1-2x/day Duration Until discharge Discharge Recommendations [facility] Other has recommended DME Transport Needs at Discharge B.L[facility] Other BLS d/t covid, fall risk, confusion
[2025-06-08 05:36] LABS: HCT - HEMATOCRIT 41.4 % (42.0-52.0); HGB - HEMOGLOBIN 13.9 g/dL (14.0-18.0); MEAN PLATELET VOLUME 10.7 fL (7.4-11.4); NRBC ABSOLUTE COUNT (AUTO) 0.00 x10^3/uL; NUCLEATED RED BLOOD CELLS AUTO 0.0 /100WBC; PLT - PLATELET COUNT 168 10^3/uL (130-450); RED CELL DISTRIBUTION WIDTH 13.8 % (12.0-15.0)
[2025-06-08 05:41] LABS: SLIDE REVIEW? Indicated
[2025-06-08 05:53] LABS: BUN - BLOOD UREA NITROGEN 24.0 mg/dL (6-20); CARBON DIOXIDE - CO2 26.0 mmol/L (21-32); CREATININE 0.9 mg/dL (0.6-1.3); GFR - MDRD 80.0 (>89)
[2025-06-08 06:22] LABS: PLATELET ESTIMATE, MANUAL NORMAL (130-450,000) (NORMAL); PLATELET MORPHOLOGY NORMAL APPEARANCE (NORMAL); RBC MORPHOLOGY (MULTIPLE) NORMAL APPEARANCE (NORMAL); WBC MORPHOLOGY (MULTIPLE) NORMAL APPEARANCE (NORMAL)
--- NOTE | 2025-06-08 12:06 | PROVIDER PROGRESS NOTE ---
Subjective Prog Note Date Prog Note Date: 06/08/25 Subjective Pt reports feeling: No change Current Medications Current Medications Current Medications: Current Medications Generic Name Dose Route Start Last Admin Trade Name Freq PRN Reason Stop Dose Admin Acetaminophen 650 mg 06/06/25 20:18 Acetaminophen 325 Mg Tablet PO Q4HR PRN Pain 1 to 4, or Fever Albuterol/Ipratropium 3 ml 06/06/25 20:18 Ipratropium/Albuterol 3 Ml Neb INH RTQID PRN Shortness of Air/Wheezing Dexamethasone 6 mg 06/07/25 09:00 06/08/25 08:32 Dexamethasone 4 Mg Tablet PO 6 mg DAILY ALEJANDRINA Administration Enoxaparin Sodium 40 mg 06/07/25 09:00 06/08/25 08:32 Enoxaparin 40 Mg/0.4 Ml Syringe SUBQ 40 mg DAILY ALEJANDRINA Administration Ondansetron HCl 4 mg 06/06/25 20:18 Ondansetron Odt 4 Mg Tablet TL Q6HR PRN Nausea / Vomiting Ondansetron HCl 4 mg 06/06/25 20:18 Ondansetron 4 Mg/2 Ml Vial IVP Q6HR PRN Nausea / Vomiting Sodium Chloride 10 ml 06/06/25 20:18 Sodium Chloride Flush 0.9% 10 Ml Syringe IVP PRN PRN NEEDED PER PROVIDER ORDERS Sodium Chloride 10 ml 06/07/25 01:00 06/08/25 08:39 Sodium Chloride Flush 0.9% 10 Ml Syringe IVP Not Given 0100,0900,1700 [facility] Objective Vital Signs/Intake & Output Reviewed Vital Signs: Yes Vital Signs: Vital Signs x48h Temp Pulse Resp BP Pulse Ox 06/08/25 08:30 36.7 C 64 20 158/87 H 94 Intake & Output: Intake & Output 06/05/25 06/06/25 06/07/25 06/08/25 23:59 23:59 23:59 23:59 Intake Total 1000 / 1000 2215 / 2215 100 / 100 Output Total Balance 1000 / 1000 2205 / 2205 100 / 100 Weight (kg) 89 kg Objective General Appearance: positive No acute distress and Alert Eyes Bilateral: positive Normal inspection Neck: positive Nml inspection Respiratory: positive Chest non-tender Cardiovascular: positive Regular rate & rhythm and No murmur Abdomen: positive Non-tender Back: positive Nml inspection Skin: positive Color nml Extremities: positive Non-tender Neurologic/Psychiatric: positive Other (Orientation varies between x 1 to x 2. Unsure what his baseline is) Lab Results 06/08/25 05:29 06/08/25 05:29 Other Labs: Lab Results x24hrs 06/08/25 Range/Units 05:29 WBC 6.8 (4.8-10.8) x10^3/uL RBC 4.41 L (4.70-6.10) 10^6/uL Hgb 13.9 L (14.0-18.0) g/dL Hct 41.4 L (42.0-52.0) % MCV 93.9 (80.0-94.0) fL MCH 31.5 H (27.0-31.0) pg MCHC 33.6 (32.0-36.0) g/dL RDW 13.8 (12.0-15.0) % Plt Count 168 (130-450) 10^3/uL MPV 10.7 (7.4-11.4) fL Neut # (Auto) 3.5 (1.5-6.6) 10^3/uL Lymph # (Auto) 1.5 (1.5-3.5) 10^3/uL [place] # (Auto) 1.7 H (0.0-1.0) 10^3/uL Eos # (Auto) 0.0 (0.0-0.7) 10^3/uL Baso # (Auto) 0.0 (0.0-0.1) 10^3/uL Absolute Nucleated RBC 0.00 x10^3/uL Band Neuts % (Manual) Not Reportable Abnorm Lymph % (Manual) Not Reportable Nucleated RBC % 0.0 /100WBC Neutrophils # (Manual) Not Reportable Lymphocytes # (Manual) Not Reportable Monocytes # (Manual) Not Reportable Eosinophils # (Manual) Not Reportable Basophils # (Manual) Not Reportable Differential Comment MANUAL=AUTO DIFF Manual Slide Review Indicated WBC Morphology NORMAL APPEARANCE (NORMAL) Platelet Estimate NORMAL (130-450,000) (NORMAL) Platelet Morphology NORMAL APPEARANCE (NORMAL) RBC Morph Micro Appear NORMAL APPEARANCE (NORMAL) Sodium 139 (135-145) mmol/L Potassium 3.9 (3.5-4.5) mmol/L Chloride 106 (101-111) mmol/L Carbon Dioxide 26 (21-32) mmol/L Anion Gap 7.0 (6-13) BUN 24 H (6-20) mg/dL Creatinine 0.9 (0.6-1.3) mg/dL Estimated GFR (MDRD) 80 L (>89) Glucose 113 H (74-104) mg/dL Calcium 8.5 (8.5-10.3) mg/dL Assessment/Plan Problem List (1) Hypoxia: Impression: I believe his hypoxia secondary to COVID-19 infection Chest x-ray negative CTA shows no acute findings Manage COVID as below 06/08: Patient is now on room air. Continue Decadron burst as below. At this point, patient is cleared for discharge from hospital. PT melanie reports that his mobility is much below baseline so he will need SNF at discharge (2) COVID-19: Impression: Positive for COVID 5 days prior to presentation Continue Decadron burst at 6 mg p.o. daily Procalcitonin negative, signifying it is unlikely that he has superimposed bacterial infection Continue DuoNeb RT 4 times daily Wean O2 as tolerated Anticipate readiness for discharge tomorrow (3) Dementia: Impression: Family reports that he is demented but he is normally oriented. They report, however, that anytime he has any kind of infection this is common His acute alteration of mental status is likely secondary to his hypoxia/COVID, manage as above UA nonconcerning for infection
[2025-06-08] MEDS ORDERED: DOCUSATE SODIUM 100 MG CAPSULE PO PRN (17:40)
[2025-06-08] MEDS: ATORVASTATIN 40 MG TABLET PO SCH (21:07)
[2025-06-08] MEDS: PREGABALIN 100 MG CAPSULE PO SCH (21:07)
[2025-06-09 05:36] LABS: HCT - HEMATOCRIT 42.1 % (42.0-52.0); HGB - HEMOGLOBIN 14.6 g/dL (14.0-18.0); MEAN PLATELET VOLUME 10.6 fL (7.4-11.4); NRBC ABSOLUTE COUNT (AUTO) 0.00 x10^3/uL; NUCLEATED RED BLOOD CELLS AUTO 0.0 /100WBC; PLT - PLATELET COUNT 181 10^3/uL (130-450); RED CELL DISTRIBUTION WIDTH 13.8 % (12.0-15.0)
[2025-06-09 05:54] LABS: BUN - BLOOD UREA NITROGEN 25.0 mg/dL (6-20); CARBON DIOXIDE - CO2 25.0 mmol/L (21-32); CREATININE 0.8 mg/dL (0.6-1.3); GFR - MDRD 91.0 (>89)
[2025-06-09] MEDS: LEVOTHYROXINE 100 MCG TABLET PO SCH (06:26)
[2025-06-09] MEDS: LEVOTHYROXINE 75 MCG TABLET PO SCH (06:27)
[2025-06-09] MEDS: CLOPIDOGREL 75 MG TABLET PO SCH (08:44)
[2025-06-09] MEDS: ASPIRIN EC 81 MG TABLET PO SCH (08:44)
[2025-06-09] MEDS: MAGNESIUM OXIDE 400 MG TABLET PO SCH (08:45)
[2025-06-09] MEDS: CYANOCOBALAMIN 500 MCG TABLET PO SCH (08:45)
[2025-06-09] MEDS: CHOLECALCIFEROL 25 MCG TABLET PO SCH (08:47)
[2025-06-09] MEDS: LOSARTAN 50 MG TABLET PO SCH (08:48)
--- NOTE | 2025-06-09 11:30 | PROVIDER PROGRESS NOTE ---
Subjective Prog Note Date Prog Note Date: 06/09/25 Subjective Pt reports feeling: No change Current Medications Current Medications Current Medications: Current Medications Generic Name Dose Route Start Last Admin Trade Name Eugenio PRN Reason Stop Dose Admin Acetaminophen 650 mg 06/06/25 20:18 Acetaminophen 325 Mg Tablet PO Q4HR PRN Pain 1 to 4, or Fever Albuterol/Ipratropium 3 ml 06/06/25 20:18 Ipratropium/Albuterol 3 Ml Neb INH RTQID PRN Shortness of Air/Wheezing Aspirin 81 mg 06/09/25 09:00 06/09/25 08:44 Aspirin Ec 81 Mg Tablet PO 81 mg DAILY ALEJANDRINA Administration Atorvastatin Calcium 40 mg 06/08/25 21:00 06/08/25 21:07 Atorvastatin 40 Mg Tablet PO 40 mg HS ALEJANDRINA Administration Bupropion HCl 150 mg 06/09/25 09:00 06/09/25 08:44 Bupropion Xl 150 Mg Tablet PO 150 mg DAILY ALEJANDRINA Administration Cholecalciferol 50 mcg 06/09/25 09:00 06/09/25 08:47 Cholecalciferol 25 Mcg Tablet PO 50 mcg DAILY ALEJANDRINA Administration Clopidogrel Bisulfate 75 mg 06/09/25 09:00 06/09/25 08:44 Clopidogrel 75 Mg Tablet PO 75 mg DAILY ALEJANDRINA Administration Cyanocobalamin 1,000 mcg 06/09/25 09:00 06/09/25 08:45 Cyanocobalamin 500 Mcg Tablet PO 1,000 mcg DAILY ALEJANDRINA Administration Dexamethasone 6 mg 06/07/25 09:00 06/09/25 08:45 Dexamethasone 4 Mg Tablet PO 6 mg DAILY ALEJANDRINA Administration Docusate Sodium 100 mg 06/08/25 17:40 Docusate Sodium 100 Mg Capsule PO BID PRN Constipation Enoxaparin Sodium 40 mg 06/07/25 09:00 06/09/25 08:44 Enoxaparin 40 Mg/0.4 Ml Syringe SUBQ 40 mg DAILY ALEJANDRINA Administration Levothyroxine Sodium 100 mcg 06/09/25 07:00 06/09/25 06:26 Levothyroxine 100 Mcg Tablet PO 100 mcg QDAC ALEJANDRINA Administration Levothyroxine Sodium 75 mcg 06/09/25 07:00 06/09/25 06:27 Levothyroxine 75 Mcg Tablet PO 75 mcg QDAC ALEJANDRINA Administration Losartan Potassium 12.5 mg 06/09/25 09:00 06/09/25 08:48 Losartan 50 Mg Tablet PO 12.5 mg DAILY ALEJANDRINA Administration Magnesium Oxide 400 mg 06/09/25 09:00 06/09/25 08:45 Magnesium Oxide 400 Mg Tablet PO 400 mg DAILY ALEJANDRINA Administration Ondansetron HCl 4 mg 06/06/25 20:18 Ondansetron Odt 4 Mg Tablet TL Q6HR PRN Nausea / Vomiting Ondansetron HCl 4 mg 06/06/25 20:18 Ondansetron 4 Mg/2 Ml Vial IVP Q6HR PRN Nausea / Vomiting Pregabalin 300 mg 06/08/25 21:00 06/09/25 08:45 Pregabalin 100 Mg Capsule PO 300 mg BID ALEJANDRINA Administration Sodium Chloride 10 ml 06/06/25 20:18 Sodium Chloride Flush 0.9% 10 Ml Syringe IVP PRN PRN NEEDED PER PROVIDER ORDERS Sodium Chloride 10 ml 06/07/25 01:00 06/09/25 08:49 Sodium Chloride Flush 0.9% 10 Ml Syringe IVP Not Given 0100,0900,1700 [facility] Objective Vital Signs/Intake & Output Reviewed Vital Signs: Yes Vital Signs: Vital Signs x48h Temp Pulse Resp BP Pulse Ox O2 Flow Rate 06/09/25 08:05 1 06/09/25 08:03 36.6 C 68 18 158/91 H 98 06/09/25 04:27 1 06/09/25 04:16 96 1 06/09/25 03:50 90 L Intake & Output: Intake & Output 06/06/25 06/07/25 06/08/25 06/09/25 23:59 23:59 23:59 23:59 Intake Total 1000 / 1000 2215 / 2215 370 / 370 210 / 210 Output Total Balance 1000 / 1000 2205 / 2205 370 / 370 210 / 210 Weight (kg) 89 kg Objective General Appearance: positive No acute distress and Alert Eyes Bilateral: positive Normal inspection Neck: positive Nml inspection Respiratory: positive Chest non-tender Cardiovascular: positive Regular rate & rhythm and No murmur Abdomen: positive Non-tender Back: positive Nml inspection Skin: positive Color nml Extremities: positive Non-tender Neurologic/Psychiatric: positive Other (Orientation varies between x 1 to x 2. ) Lab Results 06/09/25 05:10 06/09/25 05:10 Other Labs: Lab Results x24hrs 06/09/25 Range/Units 05:10 WBC 6.1 (4.8-10.8) x10^3/uL RBC 4.61 L (4.70-6.10) 10^6/uL Hgb 14.6 (14.0-18.0) g/dL Hct 42.1 (42.0-52.0) % MCV 91.3 (80.0-94.0) fL MCH 31.7 H (27.0-31.0) pg MCHC 34.7 (32.0-36.0) g/dL RDW 13.8 (12.0-15.0) % Plt Count 181 (130-450) 10^3/uL MPV 10.6 (7.4-11.4) fL Neut # (Auto) 3.2 (1.5-6.6) 10^3/uL Lymph # (Auto) 1.6 (1.5-3.5) 10^3/uL [place] # (Auto) 1.2 H (0.0-1.0) 10^3/uL Eos # (Auto) 0.0 (0.0-0.7) 10^3/uL Baso # (Auto) 0.0 (0.0-0.1) 10^3/uL Absolute Nucleated RBC 0.00 x10^3/uL Nucleated RBC % 0.0 /100WBC Sodium 137 (135-145) mmol/L Potassium 3.7 (3.5-4.5) mmol/L Chloride 105 (101-111) mmol/L Carbon Dioxide 25 (21-32) mmol/L Anion Gap 7.0 (6-13) BUN 25 H (6-20) mg/dL Creatinine 0.8 (0.6-1.3) mg/dL Estimated GFR (MDRD) 91 (>89) Glucose 94 (74-104) mg/dL Calcium 8.6 (8.5-10.3) mg/dL Assessment/Plan Problem List (1) Hypoxia: Impression: I believe his hypoxia secondary to COVID-19 infection Chest x-ray negative CTA shows no acute findings Manage COVID as below 06/08: Patient is now on room air. Continue Decadron burst as below. At this point, patient is cleared for discharge from hospital. PT melanie reports that his mobility is much below baseline so he will need SNF at discharge 06/09: Continue Decadron, patient remains medically clear for SNF (2) COVID-19: Impression: Positive for COVID 5 days prior to presentation Continue Decadron burst at 6 mg p.o. daily Procalcitonin negative, signifying it is unlikely that he has superimposed bacterial infection Continue DuoNeb RT 4 times daily Wean O2 as tolerated Anticipate readiness for discharge tomorrow (3) Dementia: Impression: Family reports that he is demented but he is normally oriented. They report, however, that anytime he has any kind of infection this is common His acute alteration of mental status is likely secondary to his hypoxia/COVID, manage as above UA nonconcerning for infection
[2025-06-10 05:30] LABS: HCT - HEMATOCRIT 41.6 % (42.0-52.0); HGB - HEMOGLOBIN 14.0 g/dL (14.0-18.0); MEAN PLATELET VOLUME 10.6 fL (7.4-11.4); NRBC ABSOLUTE COUNT (AUTO) 0.00 x10^3/uL; NUCLEATED RED BLOOD CELLS AUTO 0.0 /100WBC; PLT - PLATELET COUNT 188 10^3/uL (130-450); RED CELL DISTRIBUTION WIDTH 13.9 % (12.0-15.0)
[2025-06-10 05:46] LABS: BUN - BLOOD UREA NITROGEN 24.0 mg/dL (6-20); CARBON DIOXIDE - CO2 27.0 mmol/L (21-32); CREATININE 0.9 mg/dL (0.6-1.3); GFR - MDRD 80.0 (>89)
--- NOTE | 2025-06-10 16:25 | PROVIDER PROGRESS NOTE ---
Subjective Prog Note Date Prog Note Date: 06/10/25 Subjective Pt reports feeling: No change Current Medications Current Medications Current Medications: Current Medications Generic Name Dose Route Start Last Admin Trade Name Eugenio PRN Reason Stop Dose Admin Acetaminophen 650 mg 06/06/25 20:18 Acetaminophen 325 Mg Tablet PO Q4HR PRN Pain 1 to 4, or Fever Albuterol/Ipratropium 3 ml 06/06/25 20:18 Ipratropium/Albuterol 3 Ml Neb INH RTQID PRN Shortness of Air/Wheezing Aspirin 81 mg 06/09/25 09:00 06/10/25 09:09 Aspirin Ec 81 Mg Tablet PO 81 mg DAILY ALEJANDRINA Administration Atorvastatin Calcium 40 mg 06/08/25 21:00 06/09/25 20:19 Atorvastatin 40 Mg Tablet PO 40 mg HS ALEJANDRINA Administration Bupropion HCl 150 mg 06/09/25 09:00 06/10/25 09:16 Bupropion Xl 150 Mg Tablet PO 150 mg DAILY ALEJANDRINA Administration Cholecalciferol 50 mcg 06/09/25 09:00 06/10/25 09:09 Cholecalciferol 25 Mcg Tablet PO 50 mcg DAILY ALEJANDRINA Administration Clopidogrel Bisulfate 75 mg 06/09/25 09:00 06/10/25 09:16 Clopidogrel 75 Mg Tablet PO 75 mg DAILY ALEJANDRINA Administration Cyanocobalamin 1,000 mcg 06/09/25 09:00 06/10/25 09:16 Cyanocobalamin 500 Mcg Tablet PO 1,000 mcg DAILY ALEJANDRINA Administration Dexamethasone 6 mg 06/07/25 09:00 06/10/25 09:14 Dexamethasone 4 Mg Tablet PO 6 mg DAILY ALEJANDRINA Administration Docusate Sodium 100 mg 06/08/25 17:40 Docusate Sodium 100 Mg Capsule PO BID PRN Constipation Enoxaparin Sodium 40 mg 06/07/25 09:00 06/10/25 09:08 Enoxaparin 40 Mg/0.4 Ml Syringe SUBQ 40 mg DAILY ALEJANDRINA Administration Levothyroxine Sodium 100 mcg 06/09/25 07:00 06/10/25 06:10 Levothyroxine 100 Mcg Tablet PO 100 mcg QDAC ALEJANDRINA Administration Levothyroxine Sodium 75 mcg 06/09/25 07:00 06/10/25 06:10 Levothyroxine 75 Mcg Tablet PO 75 mcg QDAC ALEJANDRINA Administration Losartan Potassium 12.5 mg 06/09/25 09:00 06/10/25 09:09 Losartan 50 Mg Tablet PO 12.5 mg DAILY ALEJANDRINA Administration Magnesium Oxide 400 mg 06/09/25 09:00 06/10/25 09:16 Magnesium Oxide 400 Mg Tablet PO 400 mg DAILY ALEJANDRINA Administration Ondansetron HCl 4 mg 06/06/25 20:18 Ondansetron Odt 4 Mg Tablet TL Q6HR PRN Nausea / Vomiting Ondansetron HCl 4 mg 06/06/25 20:18 Ondansetron 4 Mg/2 Ml Vial IVP Q6HR PRN Nausea / Vomiting Polyethylene Glycol 17 gm 06/10/25 12:00 06/10/25 11:52 Polyethylene Glycol 3350 17 Gm Packet PO 17 gm DAILY ALEJANDRINA Administration Pregabalin 300 mg 06/08/25 21:00 06/10/25 09:08 Pregabalin 100 Mg Capsule PO 300 mg BID ALEJANDRINA Administration Sodium Chloride 10 ml 06/06/25 20:18 Sodium Chloride Flush 0.9% 10 Ml Syringe IVP PRN PRN NEEDED PER PROVIDER ORDERS Sodium Chloride 10 ml 06/07/25 01:00 06/10/25 16:13 Sodium Chloride Flush 0.9% 10 Ml Syringe IVP Not Given 0100,0900,1700 [facility] Objective Vital Signs/Intake & Output Reviewed Vital Signs: Yes Vital Signs: Vital Signs x48h Temp Pulse Resp BP BP Pulse Ox 06/10/25 16:13 36.6 C 64 16 113/59 L 94 06/10/25 08:40 36.6 C 68 16 135/78 H 92 Intake & Output: Intake & Output 06/07/25 06/08/25 06/09/25 06/10/25 23:59 23:59 23:59 23:59 Intake Total 2215 / 2215 370 / 370 1000 / 1000 170 / 170 Output Total Balance 2205 / 2205 370 / 370 1000 / 1000 170 / 170 Objective General Appearance: positive No acute distress and Alert Eyes Bilateral: positive Normal inspection Neck: positive Nml inspection Respiratory: positive Chest non-tender Cardiovascular: positive Regular rate & rhythm and No murmur Abdomen: positive Non-tender Back: positive Nml inspection Skin: positive Color nml Extremities: positive Non-tender Neurologic/Psychiatric: positive Other (Orientation varies between x 1 to x 2. ) Lab Results 06/10/25 05:02 06/10/25 05:02 Other Labs: Lab Results x24hrs 06/10/25 Range/Units 05:02 WBC 5.0 (4.8-10.8) x10^3/uL RBC 4.52 L (4.70-6.10) 10^6/uL Hgb 14.0 (14.0-18.0) g/dL Hct 41.6 L (42.0-52.0) % MCV 92.0 (80.0-94.0) fL MCH 31.0 (27.0-31.0) pg MCHC 33.7 (32.0-36.0) g/dL RDW 13.9 (12.0-15.0) % Plt Count 188 (130-450) 10^3/uL MPV 10.6 (7.4-11.4) fL Neut # (Auto) 2.1 (1.5-6.6) 10^3/uL Lymph # (Auto) 1.2 L (1.5-3.5) 10^3/uL [place] # (Auto) 1.4 H (0.0-1.0) 10^3/uL Eos # (Auto) 0.0 (0.0-0.7) 10^3/uL Baso # (Auto) 0.0 (0.0-0.1) 10^3/uL Absolute Nucleated RBC 0.00 x10^3/uL Nucleated RBC % 0.0 /100WBC Sodium 138 (135-145) mmol/L Potassium 4.0 (3.5-4.5) mmol/L Chloride 106 (101-111) mmol/L Carbon Dioxide 27 (21-32) mmol/L Anion Gap 5.0 L (6-13) BUN 24 H (6-20) mg/dL Creatinine 0.9 (0.6-1.3) mg/dL Estimated GFR (MDRD) 80 L (>89) Glucose 96 (74-104) mg/dL Calcium 8.7 (8.5-10.3) mg/dL Assessment/Plan Problem List (1) Hypoxia: Impression: I believe his hypoxia secondary to COVID-19 infection Chest x-ray negative CTA shows no acute findings Manage COVID as below 06/08: Patient is now on room air. Continue Decadron burst as below. At this point, patient is cleared for discharge from hospital. PT melanie reports that his mobility is much below baseline so he will need SNF at discharge 06/09: Continue Decadron, patient remains medically clear for SNF 06/10: Continue Decadron. Still medically clear. PT reeval recommends return to prior living situation. Awaiting return to [facility] (2) COVID-19: Impression: Positive for COVID 5 days prior to presentation Continue Decadron burst at 6 mg p.o. daily Procalcitonin negative, signifying it is unlikely that he has superimposed bacterial infection Continue DuoNeb RT 4 times daily Wean O2 as tolerated Anticipate readiness for discharge tomorrow (3) Dementia: Impression: Family reports that he is demented but he is normally oriented. They report, however, that anytime he has any kind of infection this is common His acute alteration of mental status is likely secondary to his hypoxia/COVID, manage as above UA nonconcerning for infection
[2025-06-11 00:38] VITALS: TEMP 98.1
[2025-06-11 05:15] LABS: HCT - HEMATOCRIT 42.0 % (42.0-52.0); HGB - HEMOGLOBIN 14.1 g/dL (14.0-18.0); MEAN PLATELET VOLUME 10.3 fL (7.4-11.4); NRBC ABSOLUTE COUNT (AUTO) 0.00 x10^3/uL; NUCLEATED RED BLOOD CELLS AUTO 0.0 /100WBC; PLT - PLATELET COUNT 194 10^3/uL (130-450); RED CELL DISTRIBUTION WIDTH 14.0 % (12.0-15.0)
[2025-06-11 05:31] LABS: BUN - BLOOD UREA NITROGEN 26.0 mg/dL (6-20); CARBON DIOXIDE - CO2 27.0 mmol/L (21-32); CREATININE 1.0 mg/dL (0.6-1.3); GFR - MDRD 71.0 (>89)
--- NOTE | 2025-06-11 12:38 | Discharge Summary ---
Discharge Summary Admit Date: 06/06/25 Discharge Date: 06/11/25 Discharging Provider: Grant Correa Primary Care Provider: Jackson Lu Code Status: Attempt Resuscitation DIAGNOSES Admission Diagnoses: Acute hypoxic respiratory failure COVID-19 Dementia Discharge Diagnoses with Status of Each Condition: Acute hypoxic respiratory failureresolved, secondary to COVID COVID-19completed course of steroids Dementiachronic HPI History of Present Illness: 85-year-old male who is a resident of [facility] who has been having increasing cough over the past few days as well as fevers. He was sent to the emergency department because of altered mentation, GCS 12 on arrival. On Plavix at baseline. Of note, he was diagnosed with COVID 5 days ago In the ER, workup again revealed coronavirus. Chest x-ray was performed which showed no acute abnormality. CTA chest was performed which similarly showed no abnormality. Patient was however hypoxic, and required 5 L O2 to maintain saturation above 90%. Patient was also febrile to 39.4 Celsius, had respiratory rate of 32. given this new hypoxia, hospitalist was contacted for admission for acute hypoxic respiratory failure secondary to COVID-19 HOSPITAL COURSE Hospital Course: Patient was admitted in the hospital and started on Decadron course. His hypoxia resolved, but initial PT evaluation reported that he needed more intense physical therapy than was available at his assisted living facility. He was held in the hospital for a few days while we were attempting to get SNF placement. In the meantime, his level of function improved back to baseline. He is being discharged back to his assisted living and instructed to follow-up with his PCP. He continues to need home health services in the outpatient setting ALLERGIES Allergies Allergy/AdvReac Type Severity Reaction Status Date / Time No Known Drug Allergies Allergy Verified 06/06/25 16:09 MEDICATIONS Ambulatory Orders Medication Instructions Recorded Confirmed pregabalin 300 mg capsule (Lyrica) 300 mg PO BID 02/2506/07/25 acetaminophen 325 mg tablet 650 mg PO Q6H PRN fever or pain 06/06/25 06/07/25 (Tylenol) atorvastatin 40 mg tablet 40 mg PO HS 06/06/25 5 bupropion HCl 150 mg 24 hr tablet, 150 mg PO DAILY 07/2106/07/25 extended release cholecalciferol (vitamin D3) 50 50 mcg PO DAILY 06/07/25 mcg (2,000 unit) tablet (Vitamin D3) clopidogrel 75 mg tablet 75 mg PO DAILY 06/06/2505/28 cyanocobalamin (vitamin B-12) 5,000 mcg PO DAILY 06/0606/07/25 5,000 mcg capsule docusate sodium 100 mg tablet 100 mg PO BID PRN consti pation 06/06/25 06/07/25 losartan 25 mg tablet (Cozaar) 12.5 mg PO DAILY 06/07/25 magnesium hydroxide 400 mg/5 mL 30 ml PO DAILY PRN con stipation 06/06/25 06/07/25 oral suspension (Milk of Magnesia) magnesium oxide 400 mg (241.3 mg 400 mg PO DAILY 06/0606/07/25 magnesium) tablet (MagOx) aspirin 81 mg tablet,delayed 81 mg PO DAILY 06/07/25 0 06/07/25 release levothyroxine 175 mcg tablet 175 mcg PO QDAC 06/07/25 06/07/25 white petrolatum 61 % topical 1 applic topical DIRE CTED PRN 06/07/25 06/07/25 cream (Anna Moisture Barrier skin irritation Cr) PHYSICAL EXAM AT DISCHARGE Vital Signs: Vital Signs x48h Temp Pulse Resp BP Pulse Ox 06/11/25 13:25 36.7 C 83 18 138/78 H 91 L General Appearance: positive No acute distress and Alert Eyes Bilateral: positive Normal inspection ENT: positive ENT inspection nml Neck: positive Nml inspection Respiratory: positive Chest non-tender Cardiovascular: positive Regular rate & rhythm Peripheral Pulses: positive 2+ Abdomen: positive Non-tender Skin: positive Color nml Extremities: positive Non-tender Neurologic/Psychiatric: positive Oriented x3 LABS 06/11/25 04:41 06/11/25 04:41 FOLLOW UP Follow Up: With PCP TIME SPENT Time Spent in Discharge (Minutes): 38 Discharge Plan Discharge Patient Disposition: 01 Home, Self Care Condition: Stable Prescriptions: Continued pregabalin [Lyrica] 300 MG capsule 300 mg PO BID Rx Instructions: GIVE 1 CAPSULE BY MOUTH TWO TIMES A DAY FOR PAIN acetaminophen [Tylenol] 325 mg tablet 650 mg PO Q6H PRN (Reason: fever or pain) Rx Instructions: 650 mg q6h asn headache, general aches or pains, or temp >99. If pain is not reduced or the temp is not <99 in 4 hrs notify the nurse. Do not exceed 4000 mg acetaminophen or aceetaminophen combination meds in 24 hrs. atorvastatin 40 mg tablet 40 mg PO HS bupropion HCl 150 mg tablet extended release 24 hr 150 mg PO DAILY Rx Instructions: 150 MG ONCE DAILY FOR DEPRESSION. DO NOT CHEW, CUT, OR CRUSH TABLETS SINCE THIS MAY LEAD TO AN INCREASED RISK OF ADVERSE EFFECTS INCLUDING SEIZURES. cholecalciferol (vitamin D3) [Vitamin D3] 50 mcg (2,000 unit) tablet 50 mcg PO DAILY Rx Instructions: 50 MCG BY MOUTH ONCE DAILY FOR IMMUNE SYSTEM clopidogrel 75 mg tablet 75 mg PO DAILY Rx Instructions: 75 MG BY MOUTH ONCE DAILY FOR BLOOD CLOTS cyanocobalamin (vitamin B-12) 5,000 mcg capsule 5,000 mcg PO DAILY Rx Instructions: 5000 MCG BY MOUTH ONCE DAILY FOR IMMUNE SYSTEM docusate sodium 100 mg tablet 100 mg PO BID PRN (Reason: constipation) Rx Instructions: GIVE 1 CAPSULE BY MOUTH ONCE EVERY 12 HOURS NEEDED FOR CONSTIPATION AND REPORT TO THE NURSE IF CONSTIPATION WAS NOT RELIEVED. losartan [Cozaar] 25 mg tablet 12.5 mg PO DAILY Rx Instructions: FOR HTN magnesium oxide [MagOx] 400 mg (241.3 mg magnesium) tablet 400 mg PO DAILY Rx Instructions: GIVE 1 TABLET BY MOUTH ONE TIME A DAY FOR CARDIOVASCULAR magnesium hydroxide [Milk of Magnesia] 400 mg/5 mL suspension 30 ml PO DAILY PRN (Reason: constipation) Rx Instructions: GIVE 30 ML BY MOUTH EVERY 24 HOURS NEEDED FOR CONSTIPATION REPORT TO NURSE IF CONSTIPATION IS NOT RELIEVED levothyroxine 175 mcg tablet 175 mcg PO QDAC Patient Comments: Take 1 tablet by mouth daily. Rx Instructions: GIVE 1 TABLET BY MOUTH ONE TIME A DAY FOR LOW THYROID HORMONE aspirin 81 mg tablet,delayed release (DR/EC) 81 mg PO DAILY Patient Comments: TAKE ONE TABLET BY MOUTH ONE TIME DAILY Murali Moisture Barrier Cr 61 % cream 1 applic topical DIRECTED PRN (Reason: skin irritation) Rx Instructions: APPLY TO TAA AREA OR BUTTOCKS TOPICALLY NEEDED FOR REDNESS/BREAKDOWN. REPORT TO LN IF WORSENING Activity Restrictions: No Restrictions Diet: Regular Health Concerns: You were sent to the hospital because of severely altered mentation secondary to your COVID-19 infection. You were also found to have a need for supplemental oxygen. You were admitted in the hospital and started on high-dose steroids, and you are now on room air and back to your baseline. I would like for you to stay as active as possible as this will help your recovery from COVID. You have finished your course of steroids. I would like for you to follow-up with your primary care provider for further management. I am making no changes to your home medication regimen Print Language: Guatemalan Patient Instructions: COVID-19 Home Care Stand Alone Forms: PCP List Follow-up Care: JACKSON LU MD [Primary Care Provider, Family Practice] Vitals documented within 30 minutes of discharge?: Yes (Yes)
[2025-06-11 13:59] VITALS: BP 138/78; O2SAT 91
== END 2025-06-11 13:55 | disposition home or self-care (01) | DRG 189 ==
LOC: ED 15:42 → MS2 18:57
PROVIDERS: ADMIT Nurse Practitioner Acute Care; ATTEND Nurse Practitioner Acute Care